=== PATIENT | female | born 1985 | race Caucasian/White ===

== ENCOUNTER 2019-05-08 23:53 | Emergency (ER) | payer OTHER ==
[2019-05-09 00:18] VITALS: BMI 29.1
--- NOTE | 2019-05-09 00:37 | PDOC ---
Documentation entered by Maria Teresa Beckett SCRIBE, acting as scribe for Radha Benjamin MD. Radha Benjamin MD: This documentation has been prepared by the mendezibe, Maria Teresa Beckett SCRIBE, under my direction and personally reviewed by me in its entirety. I confirm that the documentation accurately reflects all work, treatment, procedures, and medical decision making performed by me. Attending Attestation - Resident Resident Name: Nathaly Moreno - ED Attending Attestation I have performed the following: I have examined & evaluated the patient, The case was reviewed & discussed with the resident, I agree w/resident's findings & plan, Exceptions are as noted - HPI HPI: 05/09/19 00:48 The patient is a 34-year-old female with no reported medical history who presents to the emergency department with nausea and vomiting. The patient reports she recently returned from the [facility] about a week ago, presents today with nausea and vomiting. The patient reports associated symptoms of fever, chills, headache, and myalgia. The patient reports taking motrin for the symptoms, last motrin use was about 6 hours ago. - Physicial Exam PE: 05/09/19 01:49 Well-nourished well-developed 34-year-old female walking in the hallway in no acute distress Head normocephalic atraumatic eyes rosemary eomi lungs cta b/l cvs [id number] abd soft skin warm abd dry ext motor strength 5/5 neuro axox3,ambulating, no ataxia,cn2-12 grossly intact - Medical Decision Making 05/09/19 01:52 imp UTI symptoms/fever negative flu swab negative preg test mild uti will d/c home
--- NOTE | 2019-05-09 00:45 | PDOC ---
History of Present Illness - General Chief Complaint: Cold Symptoms Stated Complaint: BODY ACHES/SHIVERING Time Seen by Provider: 05/09/19 00:19 - History of Present Illness Initial Comments: 05/09/19 00:46 Pt is a 34y/o female with no PMH who presents with 1 day body aches, lumbar back pain, chills, and subjective fevers. She recently traveled to the and just over 1 week ago developed nausea and vomited once. She went to urgent care a week ago and was given medication for nausea which helped somewhat. She denies diarrhea, rhinorrhea, cough. She reports some "discomfort" with urination today but thinks it could be due to decreased PO intake. She denies sick contacts. LMP was 2 weeks ago and pt was on OCP until then, so she reports she is unlikely . Past History - Past Medical History Allergies/Adverse Reactions: Allergies Allergy/AdvReac Type Severity Reaction Status Date / Time No Known Allergies Allergy Verified 05/09/19 00:18 Home Medications: Ambulatory Orders Sulfamethoxazole/Trimethoprim [Bactrim Ds -] 1 tab PO BID #10 tablet 05/09/19 Asthma: No - Surgical History Abdominal Surgery: Yes () - Psycho Social/Smoking Cessation Hx Smoking History: Never smoked Have you smoked in the past 12 months: No Information on smoking cessation initiated: No Hx Alcohol Use: No Drug/Substance Use Hx: No Review of Systems - Review of Systems Constitutional: Yes: Chills, Fever HEENTM: No: Ear Pain, Nose Congestion Respiratory: No: Cough, Shortness of Breath ABD/GI: Yes: Nausea. No: Diarrhea, Vomiting : No: Dysuria, Hematuria Musculoskeletal: Yes: Back Pain, Joint Pain, Muscle Pain Neurological: Yes: Headache. No: Dizziness *Physical Exam - Vital Signs Last Vital Signs Temp Pulse Resp BP Pulse Ox 98.1 F 100 H 18 123/82 100 05/09/19 00:00 05/09/19 00:00 05/09/19 00:00 05/09/19 00:00 05/09/19 00:00 - Physical Exam General Appearance: Yes: Nourished, Appropriately Dressed. No: Apparent Distress HEENT: positive: EOMI, MARITZA Neck: positive: Trachea midline Respiratory/Chest: positive: Lungs Clear. negative: Wheezing Cardiovascular: positive: Regular Rhythm, Tachycardia. negative: Murmur Gastrointestinal/Abdominal: positive: Normal Bowel Sounds, Tender (epigastric) Musculoskeletal: negative: CVA Tenderness, Vertebral Tenderness Neurologic: positive: Fully Oriented, Alert, Normal Mood/Affect Medical Decision Making - Medical Decision Making 05/09/19 00:54 Pt is a 34y/o female with no PMH who presents with 1 day body aches, lumbar back pain, chills, and subjective fevers. She recently traveled to the and just over 1 week ago developed nausea and vomited once. ddx: viral vs bacterial gastroenteritis, UTI, , URI, influenza orders: rapid flu, UA, UPT 05/09/19 01:42 rapid flu negative UA bacteria present, will give Bactrim script low-grade fever, will give motrin before d/c Discharge - Discharge Information Problems reviewed: Yes Clinical Impression/Diagnosis: Viral syndrome Urinary tract infection Qualifiers: Urinary tract infection type: acute cystitis Condition: Fair Disposition: HOME - Additional Discharge Information Prescriptions: Sulfamethoxazole/Trimethoprim [Bactrim Ds -] 1 tab PO BID #10 tablet - Follow up/Referral - Patient Discharge Instructions Patient Printed Discharge Instructions: DI for Urinary Tract Infection (UTI) Additional Instructions: You were seen in the emergency room for body aches and chills. You were diagnosed with a mild urinary tract infection and a viral syndrome. Continue to take ibuprofen as directed on the label for fever and body aches. You are being given an antibiotic for the urinary tract infection. Follow up with your primary care doctor or return to the emergency room if your symptoms do not improve or you start to have cough, wheezing, or runny/stuffy nose. - Post Discharge Activity
[2019-05-09 01:42] LABS: EPI CELLS 7.6 /HPF (0-5/HPF); HYALINE CASTS 1 /lpf (0-8); URINE APPEARANCE CLEAR; URINE BILIRUBIN NEGATIVE (NEGATIVE); URINE COLOR YELLOW; URINE GLUCOSE (UA) NEGATIVE (NEGATIVE); URINE KETONE NEGATIVE (NEGATIVE); URINE LEUK ESTERASE TRACE (NEGATIVE); URINE NITRITE NEGATIVE (NEGATIVE); URINE PROTEIN NEGATIVE (NEGATIVE); URINE RBC 5 /hpf (0-4); URINE UROBILINOGEN 0.2 mg/dL (0.2-1.0); URINE WBC 6 /hpf (0-5)
[2019-05-09] MEDS ORDERED: IBUPROFEN 400 MG TABLET (FP) PO ONE ×2 (01:52→02:07)
[2019-05-09 03:19] VITALS: BP 111/72; PULSE 110; TEMP 98.9
== END 2019-05-09 02:15 | disposition home or self-care (01) ==
LOC: JER 23:53
DX: N30.00 Acute cystitis without hematuria (principal); B34.9 Viral infection, unspecified
CPT/HCPCS: 81003; 84703; 87804; 99283-25

== ENCOUNTER 2019-05-13 07:32 | Inpatient (IN) | payer OTHER ==
--- NOTE | 2019-05-13 08:02 | PDOC ---
History of Present Illness - General Chief Complaint: SIRS, Suspected/Possible Stated Complaint: REVISIT Time Seen by Provider: 05/13/19 08:02 History Source: Patient Exam Limitations: No Limitations - History of Present Illness Initial Comments: 05/13/19 08:02 Vida Stein is a 34F presenting with flu-like symptoms. Has had fever/chills, colicky back pain, and suprapubic pain for the last week. Was seen at [facility] ED and diagnosed with UTI, sent home with 5-day course of Macrobid which she completed yesterday. Still had fevers to 101-102F, worsening back pain, chills. Saw her PMD yesterday, who told he to f/u at urgent care. Coming in today for further evaluation and pain control of back pain. Pain is sharp and colicky, at most times 6/10 but 9/10 when strongest. Non-positional, unrelated to meals. One episode of nausea and vomiting this AM. Denies urinary sx or hematuria, denies vaginal bleeding/discharge, has not tolerated PO due to nausea and vomiting, no BM for a few days. No other PMH. No meds. No allergies. Denies alcohol/tobacco/drug use. Recently returned from [facility] [place], drank bottled water, [place] Past History - Past Medical History Allergies/Adverse Reactions: Allergies Allergy/AdvReac Type Severity Reaction Status Date / Time No Known Allergies Allergy Verified 05/13/19 07:46 Home Medications: Ambulatory Orders Sulfamethoxazole/Trimethoprim [Bactrim Ds -] 1 tab PO BID #10 tablet 05/09/19 Asthma: No COPD: No - Surgical History Abdominal Surgery: Yes () - Reproductive History (#): 2 Para: 2 - Psycho Social/Smoking Cessation Hx Smoking History: Never smoked Have you smoked in the past 12 months: No Hx Alcohol Use: No Drug/Substance Use Hx: No Review of Systems - Review of Systems Able to Perform ROS?: Yes Constitutional: Yes: Chills, Fever. No: Weakness HEENTM: No: Eye Pain, Blurred Vision, Hearing Loss, Throat Pain, Difficulty Swallowing Respiratory: No: Cough, Shortness of Breath, Wheezing Cardiac (ROS): No: Chest Pain, Edema, Irregular Heart Rate, Lightheadedness, Palpitations ABD/GI: Yes: Nausea, Poor Appetite, Poor Fluid Intake, Vomiting. No: Constipated, Diarrhea : Yes: Flank Pain. No: Burning, Dysuria, Discharge, Frequency, Urgency Musculoskeletal: Yes: Back Pain Integumentary: No: Symptoms Reported Neurological: No: Headache, Numbness, Weakness, Unsteady Gait Endocrine: No: Symptoms Reported Hematologic/Lymphatic: No: Symptoms Reported All Other Systems: Reviewed and Negative *Physical Exam - Vital Signs Last Vital Signs Temp Pulse Resp BP Pulse Ox 100.2 F H 114 H 18 91/61 98 05/13/19 07:46 05/13/19 07:46 05/13/19 07:46 05/13/19 07:46 05/13/19 07:46 - Physical Exam General Appearance: Yes: Nourished, Appropriately Dressed, Mild Distress HEENT: positive: EOMI, MARITZA, Normal ENT Inspection, Normal Voice, Symmetrical, TMs Normal, Pharynx Normal, Hearing Grossly Normal. negative: Scleral Icterus ( R), Scleral Icterus (L), Pharyngeal Erythema, Tonsillar Exudate, Tonsillar Erythema Neck: positive: Trachea midline, Normal Thyroid, Supple. negative: Tender, Rigid, Lymphadenopathy (R), Lymphadenopathy (L) Respiratory/Chest: positive: Lungs Clear, Normal Breath Sounds. negative: Chest Tender, Respiratory Distress, Accessory Muscle Use, Crackles, Rales, Rhonchi, Stridor, Wheezing Cardiovascular: positive: Regular Rhythm, Regular Rate Gastrointestinal/Abdominal: positive: Normal Bowel Sounds, Tender (suprapubic), Flat, Soft. negative: Guarding, Rebound, Tenderness Musculoskeletal: positive: Normal Inspection, CVA Tenderness (L>R) Extremity: positive: Normal Capillary Refill, Normal Inspection, Normal Range of Motion, Pelvis Stable. negative: Tender Integumentary: positive: Normal Color, Dry, Warm Neurologic: positive: Fully Oriented, Alert, Normal Mood/Affect, Normal Response , Motor Strength 5/5 ED Treatment Course - LABORATORY CBC & Chemistry Diagram: 05/14/19 11:14 05/14/19 11:14 Medical Decision Making - Medical Decision Making 05/13/19 09:11 Patient presents with one week of fever/chills with suprapubic and back pain, now having nausea and vomiting and worsening back pain in the setting of diagnosed UTI. Still having abdominal pain and CVA tenderness. Pain unrelated to meals, no RUQ pain. No history of renal stones. VS notable for hypotension, tachycardia, and fever. Ddx includes UTI/pyelo, infected renal stone, appendicitis. [place], [place] infection unlikely but considered. Sepsis order set obtained for evaluation sepsis likely 2/2 UTI/pyelo. test ordered. IV NS running for hypotension. Will get CTAP with IV contrast to evaluate for abdominal pathology including appy vs. stone. Ordering Ofirmev and 1g ceftriaxone for presumed UTI/pyelo, will cover with Flagyl in the event of intra-abdominal infection. Labs notable for: - CBC WNL - AST/ALT mildly elevated, possible viral illness related - Cr 1.1 - UA consistent with UTI with >300 bacteria, 1+ LE - Lactate 1.4 - Upreg negative 05/13/19 09:46 Sending for CTAP w/ IV contrast now. 05/13/19 11:27 CT: 4.2 cm right ovarian cyst, otherwise normal CT scan of the abdomen and pelvis with no evidence of appendicitis or acute pathology. No evidence of acute pathology on CT, will admit for pyelo with failure of outpatient treatment requiring IV Abx. Microblog sent. ECG shows NSR HR 92, QRS 72, QTc 467 05/13/19 12:35 Discussed case with attending Dr. Staley and koko Redding for admission to his service. Would like 2g ceftriaxone for severe pyelo, will order. Discharge - Discharge Information Problems reviewed: Yes Clinical Impression/Diagnosis: Pyelonephritis Sepsis Qualifiers: Sepsis type: sepsis due to unspecified organism Sepsis acute organ dysfunction status: unspecified Qualified Code(s): A41.9 - Sepsis, unspecified organism - Admission Yes - Follow up/Referral - Patient Discharge Instructions - Post Discharge Activity
--- NOTE | 2019-05-13 08:04 | PDOC ---
Attending Attestation - Resident Resident Name: Berto Acosta - ED Attending Attestation I have performed the following: I have examined & evaluated the patient, The case was reviewed & discussed with the resident, I agree w/resident's findings & plan, Exceptions are as noted - HPI HPI: 05/13/19 08:59 34 years old with now 7-day history of fever T-max 103.1 associated with fever chills nausea vomiting back pain symptoms are moderate persistent constant alleviated by Tylenol but then returned when Tylenol wears off recent travel to - Physicial Exam PE: 05/13/19 08:59 Vitals: Triage Vital signs reviewed [place] General Appearance: No acute distress, well nourished well developed, Head: Atraumatic, Cardiac: Regular rate and rhythym, no murmurs, no rubs, no gallops, Lungs: Clear to auscultation bilateral, good air movement bilaterally, Abdomen: Soft, non distended, normal bowel sounds, non tender to palpation Musculoskeletal: Low back discomfort reproducible Extremities: Full range of motion to all extremities, no cyanosis, clubbing, or edema Skin: Warm and dry, no rashes or lesions, no rash, no petechiae Psych: Normal mood, normal affect - Medical Decision Making 05/13/19 09:01 34 years old with 7-day history of fever low back discomfort right-sided flank tenderness on exam History and examination consistent with clinical pyelonephritis failed outpatient antibiotics CT demonstrates no acute pathology patient still with nausea vomiting will admit for IV antibiotics and further management Heart Score/ECG Review - ECG Impressions Comment:: 05/13/19 14:50 EKG demonstrates sinus rhythm no ST elevations or T wave inversions Interpreted by me.
[2019-05-13] MEDS ORDERED: SODIUM CHLORIDE 1,973 ML IV ONE (08:05)
[2019-05-13] MEDS ORDERED: ACETAMINOPHEN 1000 MG/100 ML VIAL (NON FORMULARY) IVPB ONE ×2 (08:06→13:56)
[2019-05-13] MEDS ORDERED: ACETAMINOPHEN INJECTION 100 ML IVPB ONE ×3 (08:08→14:15)
[2019-05-13] MEDS ORDERED: CEFTRIAXONE 1,000 MG in DEXTROSE 5%-WATER - 50 ML IVPB ONE ×2 (08:26→12:35)
[2019-05-13 08:35] LABS: BASO % 1.1 % (0-2.0); EOS % 0.1 % (0-4.5); HEMATOCRIT 42.4 % (32.4-45.2); HEMOGLOBIN 14.8 GM/dL (10.7-15.3); LYMPH % 10.8 % (8-40); MCH 32.4 pg (25.7-33.7); MCHC 34.8 g/dl (32.0-36.0); MEAN CELL VOLUME 93.1 fl (80-96); MEAN PLT VOLUME 9.5 fl (7.5-11.1); MONO % 6.2 % (3.8-10.2); NEUT % 81.8 % (42.8-82.8); PLATELET COUNT 138 K/MM3 (134-434); RBC 4.56 M/mm3 (3.60-5.2); RDW 12.9 % (11.6-15.6); WHITE BLOOD COUNT 5.6 K/mm3 (4.0-10.0)
[2019-05-13] MEDS ORDERED: CEFTRIAXONE 1 GM/50 ML BAG ONE ×2 (08:39→13:53)
[2019-05-13 08:40] LABS: INR 1.01 (0.83-1.09); PROTHROMBIN TIME (PATIENT) 11.9 SEC (9.7-13.0)
[2019-05-13 08:42] LABS: ACTIVATED PTT 32.6 SECONDS (25.2-36.5)
[2019-05-13 08:54] LABS: EPI CELLS 25.6 /HPF (0-5/HPF); HYALINE CASTS 27 /lpf (0-8); URINE APPEARANCE CLOUDY; URINE BACTERIA 346.9 /hpf (NEGATIVE); URINE BILIRUBIN 1+ (NEGATIVE); URINE COLOR DK YELLOW; URINE GLUCOSE (UA) NEGATIVE (NEGATIVE); URINE KETONE TRACE (NEGATIVE); URINE LEUK ESTERASE 1+ (NEGATIVE); URINE NITRITE NEGATIVE (NEGATIVE); URINE PROTEIN 1+ (NEGATIVE); URINE WBC 18 /hpf (0-5)
[2019-05-13 08:56] LABS: ALBUMIN 3.5 g/dl (3.4-5.0); BILIRUBIN,TOTAL 0.3 mg/dL (0.2-1); BLOOD UREA NITROGEN 6.4 mg/dL (7-18); CALCIUM 8.5 mg/dL (8.5-10.1); CREATININE 1.1 mg/dL (0.55-1.3); POTASSIUM 4.1 mmol/L (3.5-5.1); TOT PROT 7.6 g/dl (6.4-8.2)
[2019-05-13 09:26] LABS: URINE RBC 13.7 /hpf (0-4); YEAST MOD (NEGATIVE)
[2019-05-13] MEDS ORDERED: FLUCONAZOLE 150 MG TABLET PO ONE (13:52)
--- NOTE | 2019-05-13 13:57 | HP ---
CHIEF COMPLAINT: abdominal pain and nausea PCP: None HISTORY OF PRESENT ILLNESS: Pt. is a healthy 34 y.o. F who presents after failed outpatient management of UTI. Pt. was seen in the ED 5 days ago for abdominal pain and was discharged on 5 days of Bactrim. Pt. states that she did complete the antibiotic course. Pt. still had fevers to 101 and 102. Pt. went to urgent care and was referred to the ED. Pt. last had UTI in 2007. Pt. had one episode of nausea and NBNB emesis. Pt. endorses increasing back pain and chills. Pt. denies any vaginal bleeding or discharge. ER course was notable for: (1)BCx./ UCx., Ceftriaxone, Flagyl (2)CT-AP (3) Recent Travel: Recently came back from [place] PAST MEDICAL HISTORY: None PAST SURGICAL HISTORY: Social History: Smoking: Denies Alcohol: Occasional drink Drugs: Denies Lives at home with and 2 kids. Pt. is a sales office manager. Pt. is Allergies No Known Allergies Allergy (Verified 05/13/19 07:46) HOME MEDICATIONS: Home Medications Medication Instructions Recorded Sulfamethoxazole/Trimethoprim 1 tab PO BID #10 tablet 05/09/19 [Bactrim Ds -] REVIEW OF SYSTEMS As above PHYSICAL EXAMINATION Vital Signs - 24 hr 05/13/19 05/13/19 05/13/19 07:46 07:51 11:12 Temperature 100.2 F H Pulse Rate 114 H Pulse Rate [ Right] Respiratory 18 18 Rate Blood Pressure 91/61 Blood Pressure [Right Arm] O2 Sat by Pulse 98 100 100 Oximetry (%) 05/13/19 13:48 Temperature 98.6 F Pulse Rate Pulse Rate [ 102 H Right] Respiratory Rate Blood Pressure Blood Pressure 100/70 [Right Arm] O2 Sat by Pulse 99 Oximetry (%) GENERAL: Awake, alert, and fully oriented, in no acute distress. HEAD: Normal with no signs of trauma. EYES: Sclera anicteric, conjunctiva clear. EARS, NOSE, THROAT: Ears normal, nares patent, oropharynx clear without exudates. Moist mucous membranes. LUNGS: Breath sounds equal, clear to auscultation bilaterally. No wheezes, and no crackles. No accessory muscle use. HEART: Regular rate and rhythm, normal S1 and S2 without murmur ABDOMEN: Soft, mild RUQ and epigastric tenderness, not distended, normoactive bowel sounds, no guarding, no rebound, no masses. MUSCULOSKELETAL: Normal range of motion at all joints. No bony deformities or tenderness. R. CVA tenderness. LOWER EXTREMITIES: 2+ dorsal pedal pulses, warm, well-perfused. No calf tenderness. No peripheral edema. NEUROLOGICAL: Normal speech. PSYCHIATRIC: Cooperative. Good eye contact. Appropriate mood and affect. SKIN: Warm, dry, normal turgor Laboratory Results - last 24 hr 05/13/19 05/13/19 05/13/19 07:15 07:15 07:15 WBC 5.6 RBC 4.56 Hgb 14.8 Hct 42.4 MCV 93.1 MCH 32.4 MCHC 34.8 RDW 12.9 Plt Count 138 MPV 9.5 Absolute Neuts (auto) 4.6 Neutrophils % 81.8 Lymphocytes % 10.8 Monocytes % 6.2 Eosinophils % 0.1 Basophils % 1.1 Nucleated RBC % 0 PT with INR 11.90 INR 1.01 PTT (Actin FS) 32.6 Sodium Potassium Chloride Carbon Dioxide Anion Gap BUN Creatinine Est GFR (CKD-EPI)AfAm Est GFR (CKD-EPI)NonAf Random Glucose Lactic Acid 1.4 Calcium Total Bilirubin AST ALT Alkaline Phosphatase Troponin I Total Protein Albumin Urine Color Urine Appearance Urine pH Ur Specific [place] Urine Protein Urine Glucose (UA) Urine Ketones Urine Blood Urine Nitrite Urine Bilirubin Urine Urobilinogen Ur Leukocyte Esterase Urine WBC (Auto) Urine RBC (Auto) Urine Casts (Auto) U Pathogenic Cast Auto U Epithel Cells (Auto) Urine Bacteria (Auto) Urine Yeast (Auto) Urine HCG, Qual 05/13/19 05/13/19 05/13/19 08:05 08:07 08:36 WBC RBC Hgb Hct MCV MCH MCHC RDW Plt Count MPV Absolute Neuts (auto) Neutrophils % Lymphocytes % Monocytes % Eosinophils % Basophils % Nucleated RBC % PT with INR INR PTT (Actin FS) Sodium 136 Potassium 4.1 Chloride 104 Carbon Dioxide 25 Anion Gap 7 L BUN 6.4 L Creatinine 1.1 Est GFR (CKD-EPI)AfAm 76.39 Est GFR (CKD-EPI)NonAf 65.91 Random Glucose 107 H Lactic Acid Calcium 8.5 Total Bilirubin 0.3 AST 80 H ALT 63 H Alkaline Phosphatase 66 Troponin I < 0.02 Total Protein 7.6 Albumin 3.5 Urine Color Dk yellow Urine Appearance Cloudy Urine pH 7.0 Ur Specific [place] 1.039 H Urine Protein 1+ H Urine Glucose (UA) Negative Urine Ketones Trace H Urine Blood Trace Urine Nitrite Negative Urine Bilirubin 1+ H Urine Urobilinogen 1.0 Ur Leukocyte Esterase 1+ H Urine WBC (Auto) 18 Urine RBC (Auto) 13.7 Urine Casts (Auto) 27 U Pathogenic Cast Auto None seen U Epithel Cells (Auto) 25.6 Urine Bacteria (Auto) 346.9 Urine Yeast (Auto) Mod Urine HCG, Qual 05/13/19 09:30 WBC RBC Hgb Hct MCV MCH MCHC RDW Plt Count MPV Absolute Neuts (auto) Neutrophils % Lymphocytes % Monocytes % Eosinophils % Basophils % Nucleated RBC % PT with INR INR PTT (Actin FS) Sodium Potassium Chloride Carbon Dioxide Anion Gap BUN Creatinine Est GFR (CKD-EPI)AfAm Est GFR (CKD-EPI)NonAf Random Glucose Lactic Acid Calcium Total Bilirubin AST ALT Alkaline Phosphatase Troponin I Total Protein Albumin Urine Color Urine Appearance Urine pH Ur Specific [place] Urine Protein Urine Glucose (UA) Urine Ketones Urine Blood Urine Nitrite Urine Bilirubin Urine Urobilinogen Ur Leukocyte Esterase Urine WBC (Auto) Urine RBC (Auto) Urine Casts (Auto) U Pathogenic Cast Auto U Epithel Cells (Auto) Urine Bacteria (Auto) Urine Yeast (Auto) Urine HCG, Qual Negative ASSESSMENT/PLAN: Pt. is a healthy 34 y.o. F who presents after failed outpatient management of UTI. #Pyelonephitis Pt. failed outpatient Bactrim Will start Ceftriaxone 2gm Daily ID Consult appreciated CT AP appreciated noted 4.2 cm R. ovarian cyst, no mention of ureters--> f/u Renal US #Transaminitis maybe 2/2 to recent Bactrim use f/u Rpt BMP, can get Abd. US if LFTs continue to trend up #FEN NS @ 100 monitor electrolytes and replete as needed Regular Diet #DVT Ppx. Hep SQ Visit type - Emergency Visit Emergency Visit: Yes ED Registration Date: 05/13/19 Care time: The patient presented to the Emergency Department on the above date and was hospitalized for further evaluation of their emergent condition. - New Patient This patient is new to me today: Yes Date on this admission: 05/13/19 - Critical Care Critical Care patient: No ATTENDING PHYSICIAN STATEMENT I saw and evaluated the patient. I reviewed the resident's note and discussed the case with the resident. I agree with the resident's findings and plan as documented. SUBJECTIVE: OBJECTIVE: ASSESSMENT AND PLAN:
[2019-05-13 14:52] VITALS: BMI 24.4
--- NOTE | 2019-05-13 15:30 | PN ---
Teaching Attending Note Name of Resident: Marshall Barrera ATTENDING PHYSICIAN STATEMENT I saw and evaluated the patient. I reviewed the resident's note and discussed the case with the resident. I agree with the resident's findings and plan as documented. 34 healthy female previously on OCP presents with suprapubic pain, fever, chills and LBP. Was recently seen in ED for UTI 4-5 days ago where she was DC with PO Bactrim, no culture done at that time. Returns now w/ worsening urinary symptoms. Also endorses she feels she has a yeast infection. Denies overt pelvic pain, previously stopped OCp due to irregular period follows with [employer] outside. Denies CP/SOb/LOC, had 1 episode of vomiting. Vital Signs - 24 hr 05/13/19 05/13/19 05/13/19 07:46 07:51 11:12 Temperature 100.2 F H Pulse Rate 114 H Pulse Rate [ Right] Respiratory 18 18 Rate Blood Pressure 91/61 Blood Pressure [Right Arm] O2 Sat by Pulse 98 100 100 Oximetry (%) 05/13/19 05/13/19 13:48 14:42 Temperature 98.6 F 99.5 F Pulse Rate 82 Pulse Rate [ 102 H Right] Respiratory 18 Rate Blood Pressure 104/60 Blood Pressure 100/70 [Right Arm] O2 Sat by Pulse 99 99 Oximetry (%) PE GENERAL: NAD LUNGS: CTA b/l, unlabored, no wrr HEART: RRR, s1s2, rrr ABDOMEN: Soft, distended, tenderness to palpation RUQ, no guarding or rebound EXTREMITIES: no edema R CVA tenderness+ Laboratory Results - last 24 hr 05/13/19 05/13/19 05/13/19 07:15 07:15 07:15 WBC 5.6 RBC 4.56 Hgb 14.8 Hct 42.4 MCV 93.1 MCH 32.4 MCHC 34.8 RDW 12.9 Plt Count 138 MPV 9.5 Absolute Neuts (auto) 4.6 Neutrophils % 81.8 Lymphocytes % 10.8 Monocytes % 6.2 Eosinophils % 0.1 Basophils % 1.1 Nucleated RBC % 0 PT with INR 11.90 INR 1.01 PTT (Actin FS) 32.6 Sodium Potassium Chloride Carbon Dioxide Anion Gap BUN Creatinine Est GFR (CKD-EPI)AfAm Est GFR (CKD-EPI)NonAf Random Glucose Lactic Acid 1.4 Calcium Total Bilirubin AST ALT Alkaline Phosphatase Troponin I Total Protein Albumin Urine Color Urine Appearance Urine pH Ur Specific [place] Urine Protein Urine Glucose (UA) Urine Ketones Urine Blood Urine Nitrite Urine Bilirubin Urine Urobilinogen Ur Leukocyte Esterase Urine WBC (Auto) Urine RBC (Auto) Urine Casts (Auto) U Pathogenic Cast Auto U Epithel Cells (Auto) Urine Bacteria (Auto) Urine Yeast (Auto) Urine HCG, Qual 05/13/19 05/13/19 05/13/19 08:05 08:07 08:36 WBC RBC Hgb Hct MCV MCH MCHC RDW Plt Count MPV Absolute Neuts (auto) Neutrophils % Lymphocytes % Monocytes % Eosinophils % Basophils % Nucleated RBC % PT with INR INR PTT (Actin FS) Sodium 136 Potassium 4.1 Chloride 104 Carbon Dioxide 25 Anion Gap 7 L BUN 6.4 L Creatinine 1.1 Est GFR (CKD-EPI)AfAm 76.39 Est GFR (CKD-EPI)NonAf 65.91 Random Glucose 107 H Lactic Acid Calcium 8.5 Total Bilirubin 0.3 AST 80 H ALT 63 H Alkaline Phosphatase 66 Troponin I < 0.02 Total Protein 7.6 Albumin 3.5 Urine Color Dk yellow Urine Appearance Cloudy Urine pH 7.0 Ur Specific [place] 1.039 H Urine Protein 1+ H Urine Glucose (UA) Negative Urine Ketones Trace H Urine Blood Trace Urine Nitrite Negative Urine Bilirubin 1+ H Urine Urobilinogen 1.0 Ur Leukocyte Esterase 1+ H Urine WBC (Auto) 18 Urine RBC (Auto) 13.7 Urine Casts (Auto) 27 U Pathogenic Cast Auto None seen U Epithel Cells (Auto) 25.6 Urine Bacteria (Auto) 346.9 Urine Yeast (Auto) Mod Urine HCG, Qual 05/13/19 09:30 WBC RBC Hgb Hct MCV MCH MCHC RDW Plt Count MPV Absolute Neuts (auto) Neutrophils % Lymphocytes % Monocytes % Eosinophils % Basophils % Nucleated RBC % PT with INR INR PTT (Actin FS) Sodium Potassium Chloride Carbon Dioxide Anion Gap BUN Creatinine Est GFR (CKD-EPI)AfAm Est GFR (CKD-EPI)NonAf Random Glucose Lactic Acid Calcium Total Bilirubin AST ALT Alkaline Phosphatase Troponin I Total Protein Albumin Urine Color Urine Appearance Urine pH Ur Specific [place] Urine Protein Urine Glucose (UA) Urine Ketones Urine Blood Urine Nitrite Urine Bilirubin Urine Urobilinogen Ur Leukocyte Esterase Urine WBC (Auto) Urine RBC (Auto) Urine Casts (Auto) U Pathogenic Cast Auto U Epithel Cells (Auto) Urine Bacteria (Auto) Urine Yeast (Auto) Urine HCG, Qual Negative Home Medications Medication Instructions Recorded Sulfamethoxazole/Trimethoprim 1 tab PO BID #10 tablet 05/09/19 [Bactrim Ds -] Current Medications Generic Name Dose Route Start Last Admin Trade Name Freq PRN Reason Stop Dose Admin Acetaminophen 650 mg 05/13/19 13:53 Tylenol - PO Q6H PRN Fever Or Pain Heparin Sodium (Porcine) 5,000 unit 05/13/19 18:00 Heparin - SQ Q8H-IV OSVALDO Ceftriaxone Sodium 2 gm in 50 mls @ 100 mls/hr 05/14/19 10:00 Ceftriaxone 2 Gm-D5w Bag IVPB DAILY OSVALDO Protocol Sodium Chloride 1,000 mls @ 100 mls/hr 05/13/19 14:00 Normal Saline - IV ASDIR OSVALDO ASSESSMENT AND PLAN: 34 healthy F on OCP presents with suprapubic pain, LBP, failed abx therapy for UTI, admitted for suspected R sided pyelonephritis/complicated UTI, currently HD stable. Complicated UTI w/ R sided pyelonephritis Cont. Ceftriaxone 2g daily (for severe infections) follow urine cx, blood cx, IVF aggressive, PO intake as tolerated, Tylenol PRN for fever/pain No fluid collections or visible abscesses on CT abdomen/pelvis ID consult Vaginal yeast infection give 1 dose Diflucan 150mg R ovarian cyst 4.2cm, patient aware, follows with [employer] outside, no signs of ovarian torsion Mild transaminitis patient endorses having been on OCPs recently stopped, ?2/2 to this no RUQ tenderness or otherwise to suspect gall bladder pathology cont. to trend and monitor, send Hepatitis panel workup, GC Chlamydia, HIV ( patient consented) DVT ppx: AC SC Med-surg
--- NOTE | 2019-05-13 15:32 | EKG ---
Test Reason : Blood Pressure : / mmHG Vent. Rate : 094 BPM Atrial Rate : 094 BPM P-R Int : 166 ms QRS Dur : 074 ms QT Int : 340 ms P-R-T Axes : 062 035 038 degrees QTc Int : 425 ms NORMAL SINUS RHYTHM NONSPECIFIC ST ABNORMALITY NO PREVIOUS ECGS AVAILABLE Confirmed by MARTY ZAMARRIPA MD ([id number]) on 05/13/2019 3:31:51 PM Referred By: Confirmed By:MARTY ZAMARRIPA MD
--- NOTE | 2019-05-13 15:49 | PN ---
Progress Note (short form) - Note Progress Note: ID consult dictated imp/reccd 34 yo female admittted with 5 day history of fevers, and right flank pain she went to see her family in [place] on 04/26 and returned on Saturday 04/29- the day prior to return she noted abdominal discomfort and cramps (mild)- this persisted all week- but she was able to return to work and manage her kids and eat on Thursday she developed fevers and right flank pain, she came to the ED and was given bactrim fro UTI she filled the prsecription but continued to have fever and chills to 102 at home with continued right flank pain +nausea- couldn't eat vomited this am no diarrhea no respiratory symptoms no sick contacts no mosquito bites in [place] drank bottled water last uti was 2007 last antibiotics a few montha ago for a cold (by PCP) pyelonephritis by exam abnl lfts agree with ultrasound check cpk agree with hydration agree with rocephin repeat lfts in am, may need hep serologies if they continue to rise, ?bactrim Problem List - Problems (1) Pyelonephritis Code(s): N12 - TUBULO-INTERSTITIAL NEPHRITIS, NOT SPCF ACUTE OR CHRONIC (2) Transaminitis Code(s): R74.0 - NONSPEC ELEV OF LEVELS OF TRANSAMNS & LACTIC ACID DEHYDRGNSE
[2019-05-13] MEDS: SODIUM CHLORIDE 1,000 ML IV SCH (16:39)
--- NOTE | 2019-05-13 17:42 | CONS ---
DATE OF CONSULTATION: DATE OF DICTATION: 05/13/2019 INFECTIOUS DISEASE CONSULTATION REQUESTING PHYSICIAN: Hospitalist Service. CONSULTING PHYSICIAN: Angelica Meraz MD. HISTORY OF PRESENT ILLNESS: This is a 34-year-old otherwise healthy woman admitted from the community with 5 days of fever and right flank pain. She went to see her family in the [facility] on April 26 and returned on ThursdayApril 29. The day prior to return, she noted some abdominal discomfort and cramp. This persisted all week, but she had no fevers and was otherwise mild, and she was able to return to work, manage her kids, and eat. On Thursday she developed fevers and right flank pain. She came to the ER and was given Bactrim for UTI. She filled the prescription and took the Bactrim but continued to have fever and chills to 102 at home with continued right flank pain. She developed nausea and could not eat. She spoke to her PCP and 2 days ago went to an urgent care center where she received IV hydration. This morning she vomited, and given the persistent symptoms she came to the ER and was admitted. She denies any diarrhea. She has no respiratory complaints at all. She has no sick contacts. She had no mosquito bites when she was in the ER and she drank bottled water. Her last UTI was in 2007. Her last antibiotics were a few months ago for a cold. She received fluids and Rocephin in the emergency room. PAST MEDICAL HISTORY: Notable for . SOCIAL HISTORY: There is no history of cigarette use or drug use. She lives at home with her and 2 kids. 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 No one is sick at home. ALLERGIES: She has no known drug allergies. MEDICATION: Her medications at home, she was taking the Bactrim that we had prescribed and started on May 09. She took it until today, which is the day of admission. REVIEW OF SYSTEMS: As per HPI. PHYSICAL EXAMINATION: Vital Signs: Her T-max was 100.2, current temperature is 99.5, pulse is 82, blood pressure is 104/60, respiratory rate of 18. She weighs 66 kg. She is saturating 99% on room air. HEENT: Normocephalic. Eyes are anicteric. Neck: Supple. Lungs: Clear to auscultation. Heart: Regular rate and rhythm. Abdomen: Soft, nontender. Extremities: Without edema. She has right CVA tenderness on exam. LABORATORY: Notable for white count of 5.6, hemoglobin 14.8, platelets of 138. Her coagulation studies are normal. BUN and creatinine are 6 and 1.1, AST of 80 and ALT of 63. Her urinalysis is notable for trace ketones, 1+ leukocyte esterase with 18 white cells and her beta hCG is negative. Urine and blood cultures have been sent. IMPRESSION: In summary, this is a 34-year-old woman with pyelonephritis by exam , abnormal liver function tests, could be due to her Bactrim. Would agree with ultrasound of the kidneys. Would check CPK given the abnormal liver function tests. Would agree with hydration and Rocephin. Repeat liver function tests in a.m., may need hepatitis serologies if they continue to rise. Further recommendations to follow. Khai [id number] MTDMichael
[2019-05-13] MEDS: HEPARIN NA (PORCINE) 5,000 UNITS/ML 1ML VIAL SQ SCH (18:09)
[2019-05-13] MEDS: ACETAMINOPHEN 325 MG TABLET (FP) PO PRN (22:47)
[2019-05-14] MEDS: HEPARIN NA (PORCINE) 5,000 UNITS/ML 1ML VIAL SQ SCH ×3 (01:57→17:35)
[2019-05-14] MEDS: SODIUM CHLORIDE 1,000 ML IV SCH ×3 (06:14→16:44)
[2019-05-14] MEDS ORDERED: DEXTROSE 5%-WATER 100 ML IVPB ONE (09:09)
[2019-05-14] MEDS ORDERED: CEFTRIAXONE 2 GM in DEXTROSE 5%-WATER 100 ML IVPB SCH (10:00)
--- NOTE | 2019-05-14 10:06 | PN ---
Physical Exam: SUBJECTIVE: Patient seen and examined. She is having right sided back pain and urinary frequency without dysuria. She denies fever, chills, nausea. She says she developed an itchy rash yesterday which she believes to have been caused by CT contrast. OBJECTIVE: Vital Signs Period Temp Pulse Resp BP Sys/Avila Pulse Ox Last 24 Hr 98.4 F-99.6 F 82-102 18-19 90-104/47-70 98-100 GENERAL: The patient is awake, alert, and fully oriented, in no acute distress. LUNGS: Breath sounds equal, clear to auscultation bilaterally, no wheezes, no crackles, no accessory muscle use. HEART: Regular rate and rhythm, S1, S2 without murmur, rub or gallop. ABDOMEN: Soft, nontender, nondistended, normoactive bowel sounds, no guarding, no rebound, no hepatosplenomegaly, no masses. BACK: No CVA tenderness. EXTREMITIES: 2+ pulses, warm, well-perfused, no edema. SKIN: Warm, dry, normal turgor. Fine erythematous rash on abdomen, chest and shoulders. Laboratory Results - last 24 hr 05/13/19 05/13/19 08:07 09:30 Sodium 136 Potassium 4.1 Chloride 104 Carbon Dioxide 25 Anion Gap 7 L BUN 6.4 L Creatinine 1.1 Est GFR (CKD-EPI)AfAm 76.39 Est GFR (CKD-EPI)NonAf 65.91 Random Glucose 107 H Calcium 8.5 Total Bilirubin 0.3 AST 80 H ALT 63 H Alkaline Phosphatase 66 Creatine Kinase 56 Total Protein 7.6 Albumin 3.5 Urine HCG, Qual Negative Active Medications Generic Name Dose Route Start Last Admin Trade Name Freq PRN Reason Stop Dose Admin Acetaminophen 650 mg 05/13/19 13:53 05/13/19 22:47 Tylenol - PO 650 mg Q6H PRN Administration Fever Or Pain Heparin Sodium (Porcine) 5,000 unit 05/13/19 18:00 05/14/19 01:57 Heparin - SQ Not Given Q8H-IV OSVALDO Ceftriaxone Sodium 2 gm/ 100 mls @ 100 mls/hr 05/14/19 10:00 Dextrose IVPB 05/15/19 09:59 DAILY OSVALDO Protocol Sodium Chloride 1,000 mls @ 100 mls/hr 05/13/19 14:00 05/14/19 06:14 Normal Saline - IV 100 mls/hr ASDIR OSVALDO Administration ASSESSMENT/PLAN: This is a 34 year old woman with no significant medical history who presented to the ED with fever, back pain, and chills after being started on Bactrim for UTI. 1. Acute pyelonephritis - Failed outpatient treatment with Bactrim - Blood cultures negative after 24 hours - Urine culture growing gram neg rods - Continue ceftriaxone 2. Skin rash - Patient reports it is less itchy today - ? secondary to Bactrim, ceftriaxone - Benadryl as needed 3. Hepatic transaminitis - Possibly secondary to Bactrim - Recheck LFTs Visit type - Emergency Visit Emergency Visit: Yes ED Registration Date: 05/13/19 Care time: The patient presented to the Emergency Department on the above date and was hospitalized for further evaluation of their emergent condition. - New Patient This patient is new to me today: Yes Date on this admission: 05/14/19 - Critical Care Critical Care patient: No - Discharge Referral Referred to [facility] Med P.C.: No
[2019-05-14 11:52] LABS: BASO % 1.2 % (0-2.0); HEMATOCRIT 40.7 % (32.4-45.2); LYMPH % 35.4 % (8-40); MCH 32.3 pg (25.7-33.7); MCHC 34.4 g/dl (32.0-36.0); MEAN CELL VOLUME 93.7 fl (80-96); MEAN PLT VOLUME 10.2 fl (7.5-11.1); MONO % 15.2 % (3.8-10.2); NEUT % 47.2 % (42.8-82.8); PLATELET COUNT 100 K/MM3 (134-434); RBC 4.34 M/mm3 (3.60-5.2); RDW 13.1 % (11.6-15.6); WHITE BLOOD COUNT 5.5 K/mm3 (4.0-10.0)
[2019-05-14 12:21] LABS: ALBUMIN 2.7 g/dl (3.4-5.0); BILIRUBIN,TOTAL 0.2 mg/dL (0.2-1); CALCIUM 7.9 mg/dL (8.5-10.1); CREATININE 0.8 mg/dL (0.55-1.3); MAGNESIUM 2.1 mg/dL (1.8-2.4); TOT PROT 6.2 g/dl (6.4-8.2)
--- NOTE | 2019-05-14 13:27 | PN ---
Progress Note (short form) - Note Progress Note: feels improved when I saw her yesterday there was a question of whether she had a faint rash- she thought she was a bit itchy after the iv contrast today she has a diffuse macular rash after receiving ceftriaxone this am- itchy - required benadryl no fevers reports improvement in flank pain-no longer radiating throughout her body Vital Signs Period Temp Pulse Resp BP Sys/Avila Pulse Ox Last 24 Hr 98.4 F-99.6 F 82-106 18-19 90-104/47-73 98-99 no conjunctivitis no pharyngitis no arthritis +diffuse macular rash abd/back cor-rrr lungs clear +right cvat abd soft, nt ext no edema +inguinal adenopathy bilateral- ?new, also left retorauricular node CBC, BMP 05/14/19 11:14 05/14/19 11:14 Laboratory Tests 05/13/19 05/14/19 08:07 11:14 AST 80 H 137 H ALT 63 H 113 H Microbiology 05/13/19 08:36 Urine - Urine Clean Catch Urine Culture - Preliminary Lactose Fermenting Neg Bacilli Yeast Like Organism 05/13/19 07:50 Blood - Peripheral Venous Blood Culture - Preliminary NO GROWTH OBTAINED AFTER 24 HOURS, INCUBATION TO CONTINUE FOR 4 DAYS. 05/13/19 07:55 Blood - Peripheral Venous Blood Culture - Preliminary NO GROWTH OBTAINED AFTER 24 HOURS, INCUBATION TO CONTINUE FOR 4 DAYS. a/p pyelonephritis by exam abnl lfts suspected drug rash-?rocephin, prior bactrim thrombocytopenia recent travel to - will get dengue and zika serology as well d/c rocephin f/u lfts and cbc with diff in am f/u cultures consider quinolone for UTI based on sensitivities- should be available in am
[2019-05-14 14:44] LABS: ANISOCYTOSIS 0; MACROCYTOSIS 0; PLATELET ESTIMATE DECREASED
[2019-05-14] MEDS: ACETAMINOPHEN 325 MG TABLET (FP) PO PRN (16:41)
[2019-05-15] MEDS: HEPARIN NA (PORCINE) 5,000 UNITS/ML 1ML VIAL SQ SCH ×3 (02:14→18:53)
[2019-05-15] MEDS: SODIUM CHLORIDE 1,000 ML IV SCH ×2 (02:17→13:44)
[2019-05-15 08:20] LABS: BASO % 0.9 % (0-2.0); EOS % 1.2 % (0-4.5); HEMATOCRIT 38.8 % (32.4-45.2); HEMOGLOBIN 13.2 GM/dL (10.7-15.3); LYMPH % 46.2 % (8-40); MCH 31.7 pg (25.7-33.7); MEAN CELL VOLUME 93.1 fl (80-96); MEAN PLT VOLUME 11.1 fl (7.5-11.1); MONO % 27.4 % (3.8-10.2); NEUT % 24.3 % (42.8-82.8); PLATELET COUNT 95 K/MM3 (134-434); RBC 4.17 M/mm3 (3.60-5.2); RDW 12.9 % (11.6-15.6); WHITE BLOOD COUNT 6.6 K/mm3 (4.0-10.0)
[2019-05-15 08:45] LABS: ALBUMIN 2.7 g/dl (3.4-5.0); BILIRUBIN,TOTAL 0.3 mg/dL (0.2-1); BLOOD UREA NITROGEN 4.6 mg/dL (7-18); CALCIUM 7.8 mg/dL (8.5-10.1); CREATININE 0.7 mg/dL (0.55-1.3); POTASSIUM 3.9 mmol/L (3.5-5.1); TOT PROT 5.8 g/dl (6.4-8.2)
--- NOTE | 2019-05-15 10:17 | PN ---
Physical Exam: SUBJECTIVE: Patient seen and examined. Yesterday, rash increased after second dose of ceftriaxone. She was treated with Benadryl and ceftriaxone was discontinued. This morning, she complains that her hands and feet feel swollen. Rash has improved. OBJECTIVE: Vital Signs Period Temp Pulse Resp BP Sys/Avila Pulse Ox Last 24 Hr 98.1 F-99.2 F 72-106 17-19 92-107/56-73 99 GENERAL: The patient is awake, alert, and fully oriented, in no acute distress. LUNGS: Breath sounds equal, clear to auscultation bilaterally, no wheezes, no crackles, no accessory muscle use. HEART: Regular rate and rhythm, S1, S2 without murmur, rub or gallop. ABDOMEN: Soft, nontender, nondistended, normoactive bowel sounds, no guarding, no rebound, no hepatosplenomegaly, no masses. BACK: No CVA tenderness. EXTREMITIES: 2+ pulses, warm, well-perfused, hands mildly swollen, no LE edema. SKIN: Warm, dry, normal turgor. Decreased erythematous maculopapular rash on abdomen, chest and shoulders. Laboratory Results - last 24 hr 05/14/19 05/14/19 05/15/19 11:14 11:14 07:03 WBC 5.5 6.6 RBC 4.34 4.17 Hgb 14.0 13.2 Hct 40.7 38.8 MCV 93.7 93.1 MCH 32.3 31.7 MCHC 34.4 34.0 RDW 13.1 12.9 Plt Count 100 L D 95 L MPV 10.2 11.1 Absolute Neuts (auto) 2.6 1.6 Neutrophils % 47.2 D 24.3 L D Neutrophils % (Manual) 35.5 L Band Neutrophils % 19.3 Lymphocytes % 35.4 D 46.2 H D Lymphocytes % (Manual) 20.4 Monocytes % 15.2 H D 27.4 H D Monocytes % (Manual) 3 L Eosinophils % 1.0 D 1.2 Eosinophils % (Manual) 1.1 Basophils % 1.2 0.9 Basophils % (Manual) 0.0 Myelocytes % (Man) 1 Promyelocytes % (Man) 0 Blast Cells % (Manual) 0 Nucleated RBC % 0 0 Metamyelocytes 1 Hypochromia 0 Platelet Estimate Decreased Polychromasia 0 Poikilocytosis 0 Anisocytosis 0 Microcytosis 0 Macrocytosis 0 Sodium 139 Potassium 4.0 Chloride 108 H Carbon Dioxide 28 Anion Gap 4 L BUN 5.0 L Creatinine 0.8 Est GFR (CKD-EPI)AfAm 112.27 Est GFR (CKD-EPI)NonAf 96.87 Random Glucose 107 H Calcium 7.9 L Phosphorus 2.0 L Magnesium 2.1 Total Bilirubin 0.2 AST 137 H ALT 113 H Alkaline Phosphatase 54 Total Protein 6.2 L Albumin 2.7 L 05/15/19 07:03 WBC RBC Hgb Hct MCV MCH MCHC RDW Plt Count MPV Absolute Neuts (auto) Neutrophils % Neutrophils % (Manual) Band Neutrophils % Lymphocytes % Lymphocytes % (Manual) Monocytes % Monocytes % (Manual) Eosinophils % Eosinophils % (Manual) Basophils % Basophils % (Manual) Myelocytes % (Man) Promyelocytes % (Man) Blast Cells % (Manual) Nucleated RBC % Metamyelocytes Hypochromia Platelet Estimate Polychromasia Poikilocytosis Anisocytosis Microcytosis Macrocytosis Sodium 140 Potassium 3.9 Chloride 110 H Carbon Dioxide 26 Anion Gap 4 L BUN 4.6 L Creatinine 0.7 Est GFR (CKD-EPI)AfAm 131.94 Est GFR (CKD-EPI)NonAf 113.84 Random Glucose 83 Calcium 7.8 L Phosphorus Magnesium Total Bilirubin 0.3 AST 187 H ALT 167 H Alkaline Phosphatase 52 Total Protein 5.8 L Albumin 2.7 L Active Medications Generic Name Dose Route Start Last Admin Trade Name Freq PRN Reason Stop Dose Admin Acetaminophen 650 mg 05/13/19 13:53 05/14/19 16:41 Tylenol - PO 650 mg Q6H PRN Administration Fever Or Pain Diphenhydramine HCl 25 mg 05/14/19 13:13 Benadryl Injection - IVPB Q6H PRN FOR ITCHING Heparin Sodium (Porcine) 5,000 unit 05/13/19 18:00 05/15/19 02:14 Heparin - SQ 5,000 unit Q8H-IV OSVALDO Administration Sodium Chloride 1,000 mls @ 100 mls/hr 05/13/19 14:00 05/15/19 02:17 Normal Saline - IV 100 mls/hr ASDIR OSVALDO Administration ASSESSMENT/PLAN: This is a 34 year old woman with no significant medical history who presented to the ED with fever, back pain, and chills after being started on Bactrim for UTI. 1. Acute pyelonephritis - Failed outpatient treatment with Bactrim - Blood cultures negative after 48 hours - Urine culture growing gram neg rods - Continue ceftriaxone discontinued after 2 days secondary to rash - Await identification and sensitivities on urine culture 2. Skin rash - Likely secondary to ceftriaxone - Ceftriaxone discontinued and there has been improvement in rash - Continue Benadryl as needed 3. Hepatic transaminitis - Possibly secondary to Bactrim, ceftriaxone - Bactrim and ceftriaxone have been discontinued - Check hepatitis panel - Will continue to follow LFTs Visit type - Emergency Visit Emergency Visit: Yes ED Registration Date: 05/13/19 Care time: The patient presented to the Emergency Department on the above date and was hospitalized for further evaluation of their emergent condition. - New Patient This patient is new to me today: No - Critical Care Critical Care patient: No - Discharge Referral Referred to [facility] Med P.C.: No
[2019-05-15 13:33] LABS: PLATELET ESTIMATE DECREASED
--- NOTE | 2019-05-15 15:00 | PN ---
Progress Note (short form) - Note Progress Note: feels improved still some flank discomfort but improved rash is fading now with swelling of her hands feet Vital Signs Period Temp Pulse Resp BP Sys/Avila Pulse Ox Last 24 Hr 98.1 F-98.1 F 72-80 17-18 92-96/56-56 99 cor-rrr lungs clear abd soft,nt, less cvat ext rash is fading, has swelling of her hands/fingers and feet inguinal adenopathy unchanged from yesterday CBC, BMP 05/15/19 07:03 05/15/19 07:03 Microbiology 05/13/19 08:36 Urine - Urine Clean Catch Urine Culture - Preliminary Lactose Fermenting Neg Bacilli Yeast Like Organism 05/13/19 07:50 Blood - Peripheral Venous Blood Culture - Preliminary NO GROWTH OBTAINED AFTER 48 HOURS, INCUBATION TO CONTINUE FOR 3 DAYS. 05/13/19 07:55 Blood - Peripheral Venous Blood Culture - Preliminary NO GROWTH OBTAINED AFTER 48 HOURS, INCUBATION TO CONTINUE FOR 3 DAYS. ast 187 alt 167 a/p pyelonephritis by exam-less cvat abnl lfts suspected drug rash-?rocephin, prior bactrim thrombocytopenia recent travel to - will get dengue and zika serology as well now with swelling of the hands and feet- ?zika will start po levaquin for partially treated pyelonephritis monogamous, declines HIV testing at this time
[2019-05-16] MEDS: SODIUM CHLORIDE 1,000 ML IV SCH ×4 (00:06→21:58)
[2019-05-16] MEDS: HEPARIN NA (PORCINE) 5,000 UNITS/ML 1ML VIAL SQ SCH ×3 (03:54→18:45)
[2019-05-16 09:27] LABS: BASO % 1.4 % (0-2.0); EOS % 0.8 % (0-4.5); HEMOGLOBIN 13.7 GM/dL (10.7-15.3); MCH 31.6 pg (25.7-33.7); MCHC 34.2 g/dl (32.0-36.0); MEAN CELL VOLUME 92.5 fl (80-96); MEAN PLT VOLUME 10.8 fl (7.5-11.1); MONO % 15.8 % (3.8-10.2); PLATELET COUNT 138 K/MM3 (134-434); RBC 4.32 M/mm3 (3.60-5.2); RDW 13.5 % (11.6-15.6)
[2019-05-16 09:57] LABS: ALBUMIN 3.1 g/dl (3.4-5.0); BILIRUBIN,TOTAL 0.4 mg/dL (0.2-1); BLOOD UREA NITROGEN 6.2 mg/dL (7-18); CALCIUM 8.3 mg/dL (8.5-10.1); CREATININE 0.7 mg/dL (0.55-1.3); TOT PROT 6.5 g/dl (6.4-8.2)
--- NOTE | 2019-05-16 12:02 | PN ---
Physical Exam: SUBJECTIVE: Patient seen and examined. She has no complaints. She says rash has improved. Swelling of her hands has improved as she was able to remove her ring today and couldn't yesterday. OBJECTIVE: Vital Signs Period Temp Pulse Resp BP Sys/Avila Pulse Ox Last 24 Hr 97.9 F-98.4 F 62-68 18-18 104-108/64-68 99 GENERAL: The patient is awake, alert, and fully oriented, in no acute distress. LUNGS: Breath sounds equal, clear to auscultation bilaterally, no wheezes, no crackles, no accessory muscle use. HEART: Regular rate and rhythm, S1, S2 without murmur, rub or gallop. ABDOMEN: Soft, nontender, nondistended, normoactive bowel sounds, no guarding, no rebound, no hepatosplenomegaly, no masses. EXTREMITIES: 2+ pulses, warm, well-perfused, no edema. SKIN: Warm, dry, normal turgor. Faint erythematous maculopapular rash on abdomen , chest and shoulders. Laboratory Results - last 24 hr 05/15/19 05/16/19 05/16/19 07:03 07:50 07:50 WBC 9.0 RBC 4.32 Hgb 13.7 Hct 40.0 MCV 92.5 MCH 31.6 MCHC 34.2 RDW 13.5 Plt Count 138 D MPV 10.8 Absolute Neuts (auto) 1.9 Total Counted 100 Neutrophils % 21.0 L Neutrophils % (Manual) 31.0 L Band Neutrophils % 1.0 Lymphocytes % 61.0 H D Lymphocytes % (Manual) 37.0 D Monocytes % 15.8 H Monocytes % (Manual) 14 H D Eosinophils % 0.8 Eosinophils % (Manual) 2.0 D Basophils % 1.4 Basophils % (Manual) 1.0 D Myelocytes % (Man) 3 H D Promyelocytes % (Man) 1 D Nucleated RBC % 0 Platelet Estimate Decreased Platelet Comment No clumping noted Sodium 139 Potassium 4.0 Chloride 106 Carbon Dioxide 28 Anion Gap 4 L BUN 6.2 L Creatinine 0.7 Est GFR (CKD-EPI)AfAm 131.94 Est GFR (CKD-EPI)NonAf 113.84 Random Glucose 80 Calcium 8.3 L Total Bilirubin 0.4 AST 447 H ALT 375 H Alkaline Phosphatase 62 Total Protein 6.5 Albumin 3.1 L Active Medications Generic Name Dose Route Start Last Admin Trade Name Freq PRN Reason Stop Dose Admin Acetaminophen 650 mg 05/13/19 13:53 05/14/19 16:41 Tylenol - PO 650 mg Q6H PRN Administration Fever Or Pain Diphenhydramine HCl 25 mg 05/14/19 13:13 Benadryl Injection - IVPB Q6H PRN FOR ITCHING Heparin Sodium (Porcine) 5,000 unit 05/13/19 18:00 05/16/19 10:39 Heparin - SQ 5,000 unit Q8H-IV OSVALDO Administration Sodium Chloride 1,000 mls @ 100 mls/hr 05/13/19 14:00 05/16/19 11:37 Normal Saline - IV 100 mls/hr ASDIR OSVALDO Administration ASSESSMENT/PLAN: This is a 34 year old woman with no significant medical history who presented to the ED with fever, back pain, and chills after being started on Bactrim for UTI. 1. Acute pyelonephritis - Failed outpatient treatment with Bactrim - Blood cultures negative after 48 hours - Urine culture growing E. coli resistant to Bactrim - Ceftriaxone discontinued after 2 days secondary to rash and received Levaquin x1 dose yesterday 2. Skin rash - Likely secondary to ceftriaxone - Ceftriaxone discontinued and there has been improvement in rash - Continue Benadryl as needed 3. Hepatic transaminitis - Possibly secondary to Bactrim, ceftriaxone - Bactrim and ceftriaxone have been discontinued - AST and ALT continue to increase - Hepatitis panel pending - Abdominal US 4. Thrombocytopenia - Improved 5. Possible viral syndrome - CMV, Dengue, mono, hepatitis, parvovirus, toxoplasma, Zika, Chikungunya serologies pending Visit type - Emergency Visit Emergency Visit: Yes ED Registration Date: 05/13/19 Care time: The patient presented to the Emergency Department on the above date and was hospitalized for further evaluation of their emergent condition. - New Patient This patient is new to me today: No - Critical Care Critical Care patient: No - Discharge Referral Referred to [facility] No
--- NOTE | 2019-05-16 12:06 | PN ---
Progress Note (short form) - Note Progress Note: feels improved flank pain much improved hand and feet swelling resolving- can take her rings off today now reports Vital Signs Period Temp Pulse Resp BP Sys/Avila Pulse Ox Last 24 Hr 97.9 F-98.4 F 62-68 18-18 104-108/64-68 99 no thrush cor-rrr lungs clear abd soft,mild ruq discomfort to palpation +bilateral femoral adenopathy ext no edema rash still present but fading 05/16/19 07:50 05/16/19 07:50 61 percent lymphocytosis ast 187- now 447 alt 167-now 375 Microbiology 05/13/19 08:36 Urine - Urine Clean Catch Urine Culture - Final Escherichia Coli Yeast Like Organism 05/13/19 07:50 Blood - Peripheral Venous Blood Culture - Preliminary NO GROWTH OBTAINED AFTER 72 HOURS, INCUBATION TO CONTINUE FOR 2 DAYS. 05/13/19 07:55 Blood - Peripheral Venous Blood Culture - Preliminary NO GROWTH OBTAINED AFTER 72 HOURS, INCUBATION TO CONTINUE FOR 2 DAYS. a/p abnl lfts- worsened ?viral syndrome- cbc with lymphocytosis suspected drug rash-?rocephin, prior bactrim thrombocytopenia resolved recent travel to - will get dengue and zika serology as well now with swelling of the hands and feet- ?zika ?pyelonephritis- received 3 days antibioitcs in hospital- will hold further antibiotics for now with rising lfts- not sure this is a drug reaction versus viral infection monogamous, declines HIV testing at this time send toxo, parvovirus, chikugunya repeat sonogram of the abdomen- liver/gb check INR GI evaluation f/u hep serologies d/w dr harper
[2019-05-16 12:39] LABS: PLATELET ESTIMATE DECREASED
--- NOTE | 2019-05-16 14:45 | CON.GI ---
Consult Consult Specialty:: GI Referred by:: Medicine Reason for Consultation:: abnormal LFTs - History of Present Illness Chief Complaint: fevers, R back pain History of Present Illness: 34F with no significant PMHx presenting for evaluation of fevers and R back pain. GI consulted for abnormal LFTs. Sx of R back pain and abdominal pain, nausea, early satiety began Apr 29 while she was visiting Then fevers began. Upon return to [place], went to [facility] ED, was found to have UTI and given TMP-SMX for 5 days. Fevers persisted, so on 05/10, went to [facility] urgent care, told her same dx and continue the course. There, they checked labs - LFTs were already starting to be abnormal - AP 61, TB 0.5, AST 44, ALT 40 Took acetaminophen 1000mg q6h on 05/11-05/12 for persistent fevers On 05/13 represented back to [facility] for persistent fevers Here, noted to have UTI/pyeloneophritis resistant to TMP-SMX Given two doses of CTX, had allergic reaction LFTs continue to rise, so GI consulted Pt denies significant ETOH intake Was taking supplements from a chiropractor, but stopped prior to DR boggs, around 04/23: Cholacol, Zymex, Antonex, Pituitrophin, Int. Cl. 2 Has now been afebrile for >24 hours Pt showed me baseline LFTs from [facility] in 12/2018: TB 0.3 AP 54 AST 11 ALT 15 - History Source History Provided By: Patient Limitations to Obtaining History: No Limitations - Past Medical History ...LMP: 05/03/19 ...: No - Alcohol/Substance Use Hx Alcohol Use: No - Smoking History Smoking history: Never smoked Have you smoked in the past 12 months: No Home Medications - Allergies Allergies/Adverse Reactions: Allergies Allergy/AdvReac Type Severity Reaction Status Date / Time No Known Allergies Allergy Verified 05/13/19 07:46 - Home Medications Home Medications: Ambulatory Orders Sulfamethoxazole/Trimethoprim [Bactrim Ds -] 1 tab PO BID #10 tablet 05/09/19 Family Medical History Family History: Unremarkable Review of Systems - Review of Systems Constitutional: reports: Chills, Fever Eyes: reports: No Symptoms HENT: reports: No Symptoms Neck: reports: No Symptoms Cardiovascular: reports: No Symptoms Respiratory: reports: No Symptoms Gastrointestinal: reports: Nausea. denies: Abdominal Pain Genitourinary: reports: Flank Pain Musculoskeletal: reports: No Symptoms Integumentary: reports: No Symptoms Neurological: reports: No Symptoms Hematology/Lymphatic: reports: No Symptoms Psychiatric: reports: No Symptoms Physical Exam-GI Vital Signs: Vital Signs Temperature 98.2 F 05/16/19 06:41 Pulse Rate 62 05/16/19 06:41 Respiratory Rate 18 05/16/19 09:00 Blood Pressure 104/64 05/16/19 06:41 O2 Sat by Pulse Oximetry (%) 99 05/16/19 09:00 Constitutional: Yes: Well Nourished, No Distress Eyes: Yes: Conjunctiva Clear. No: Sclera Icterus HENT: Yes: Atraumatic, Normocephalic Cardiovascular: Yes: Regular Rate and Rhythm Respiratory: Yes: CTA Bilaterally ...Palpate: No: Tenderness, Epigastium ...Percussion: No: Dullness, Tympanitic ...Rectal Exam: Yes: Deferred Edema: No Neurological: Yes: Alert, Oriented Psychiatric: Yes: Alert, Oriented Labs: CBC, BMP 05/16/19 07:50 05/16/19 07:50 INR, PTT INR 1.01 (0.83-1.09) 05/13/19 07:15 Hepatic Panel Total Bilirubin 0.4 mg/dL (0.2-1) 05/16/19 07:50 AST 447 U/L (15-37) H 05/16/19 07:50 ALT 375 U/L (13-61) H 05/16/19 07:50 Alkaline Phosphatase 62 U/L (45-117) 05/16/19 07:50 Albumin 3.1 g/dl (3.4-5.0) L 05/16/19 07:50 Imaging - Results Cat Scan: Report Reviewed Assessment/Plan Hepatocellular rise in LFTs. DDx - DILI from TMP-SMX vs NSAIDs vs acetaminophen , less likely ceftriaxone; vs viral hepatitis acquired on recent trip to , vs DILI from supplements she was taking up until mid-April. Avoid hepatotoxins In addition to pending EBV, CMV, Dengue, HAV, HBV, HCV, would check the following: acetaminophen level, PALOMO, ASMA, iron studies, alpha 1 AT, ceruloplasmin Daily LFTs and INR Will follow
[2019-05-16] MEDS ORDERED: traMADol HCL 50 MG TABLET PO ONE (18:11)
[2019-05-17] MEDS: HEPARIN NA (PORCINE) 5,000 UNITS/ML 1ML VIAL SQ SCH ×3 (01:08→18:39)
[2019-05-17 07:10] LABS: CMV IgM < 30.0 AU/mL (0.0-29.9)
[2019-05-17 07:42] LABS: BASO % 1.1 % (0-2.0); EOS % 0.9 % (0-4.5); HEMATOCRIT 37.2 % (32.4-45.2); HEMOGLOBIN 12.8 GM/dL (10.7-15.3); LYMPH % 58.9 % (8-40); MCH 31.8 pg (25.7-33.7); MCHC 34.4 g/dl (32.0-36.0); MEAN CELL VOLUME 92.6 fl (80-96); MEAN PLT VOLUME 10.2 fl (7.5-11.1); MONO % 16.2 % (3.8-10.2); NEUT % 22.9 % (42.8-82.8); PLATELET COUNT 179 K/MM3 (134-434); RBC 4.01 M/mm3 (3.60-5.2); RDW 12.9 % (11.6-15.6); WHITE BLOOD COUNT 7.5 K/mm3 (4.0-10.0)
[2019-05-17 07:58] LABS: INR 0.97 (0.83-1.09); PROTHROMBIN TIME (PATIENT) 11.4 SEC (9.7-13.0)
[2019-05-17 08:17] LABS: ALBUMIN 2.9 g/dl (3.4-5.0); BILIRUBIN,DIRECT 0.2 mg/dL (0.0-0.2); BILIRUBIN,TOTAL 0.3 mg/dL (0.2-1); BLOOD UREA NITROGEN 5.9 mg/dL (7-18); CALCIUM 8.3 mg/dL (8.5-10.1); CREATININE 0.6 mg/dL (0.55-1.3); TOT PROT 6.4 g/dl (6.4-8.2)
[2019-05-17] MEDS: SODIUM CHLORIDE 1,000 ML IV SCH ×2 (11:10→18:42)
[2019-05-17] MEDS ORDERED: ONDANSETRON 4 MG/2 ML VIAL IVPUSH PRN (11:37)
--- NOTE | 2019-05-17 11:37 | PN ---
Physical Exam: SUBJECTIVE: Patient seen and examined. She had a headache yesterday evening and today she complains of nausea. OBJECTIVE: Vital Signs Period Temp Pulse Resp BP Sys/Avila Pulse Ox Last 24 Hr 97.4 F-97.9 F 68-80 18-18 94-104/59-65 98-98 GENERAL: The patient is awake, alert, and fully oriented, in no acute distress. LUNGS: Breath sounds equal, clear to auscultation bilaterally, no wheezes, no crackles, no accessory muscle use. HEART: Regular rate and rhythm, S1, S2 without murmur, rub or gallop. ABDOMEN: Soft, nontender, nondistended, normoactive bowel sounds, no guarding, no rebound, no hepatosplenomegaly, no masses. EXTREMITIES: 2+ pulses, warm, well-perfused, no edema. SKIN: Warm, dry, normal turgor, no rash or lesions. NEUROLOGICAL: Alert, oriented, CN intact, no neck stiffness, visual jones intact, strength 5/5 throughout, sensation intact Laboratory Results - last 24 hr 05/15/19 05/15/19 05/15/19 14:55 14:55 14:55 WBC RBC Hgb Hct MCV MCH MCHC RDW Plt Count MPV Absolute Neuts (auto) Neutrophils % Neutrophils % (Manual) Band Neutrophils % Lymphocytes % Lymphocytes % (Manual) Monocytes % Monocytes % (Manual) Eosinophils % Eosinophils % (Manual) Basophils % Basophils % (Manual) Myelocytes % (Man) Promyelocytes % (Man) Blast Cells % (Manual) Nucleated RBC % Metamyelocytes Platelet Estimate PT with INR INR Sodium Potassium Chloride Carbon Dioxide Anion Gap BUN Creatinine Est GFR (CKD-EPI)AfAm Est GFR (CKD-EPI)NonAf Random Glucose Calcium Iron TIBC Iron Saturation Unsaturated IBC Ferritin Total Bilirubin Direct Bilirubin AST ALT Alkaline Phosphatase Total Protein Albumin Acetaminophen CMV IgG Ab > 10.00 H CMV IgM Ab < 30.0 Hep A IgM Ab Confirm Negative Hep Bs Antigen Negative Hep B Core IgM Ab Negative Hepatitis C Ab (EIA) <0.1 Infectious Butts Assay Negative 05/16/19 05/16/19 05/17/19 07:50 15:40 06:50 WBC RBC Hgb Hct MCV MCH MCHC RDW Plt Count MPV Absolute Neuts (auto) Neutrophils % Neutrophils % (Manual) 18.5 L Band Neutrophils % 0.0 Lymphocytes % Lymphocytes % (Manual) 61.2 H D Monocytes % Monocytes % (Manual) 9 Eosinophils % Eosinophils % (Manual) 0.0 D Basophils % Basophils % (Manual) 0.0 Myelocytes % (Man) 2 D Promyelocytes % (Man) 0 D Blast Cells % (Manual) 0 Nucleated RBC % Metamyelocytes 0 D Platelet Estimate Decreased PT with INR 11.40 INR 0.97 Sodium Potassium Chloride Carbon Dioxide Anion Gap BUN Creatinine Est GFR (CKD-EPI)AfAm Est GFR (CKD-EPI)NonAf Random Glucose Calcium Iron TIBC Iron Saturation Unsaturated IBC Ferritin Total Bilirubin Direct Bilirubin AST ALT Alkaline Phosphatase Total Protein Albumin Acetaminophen <2.0 CMV IgG Ab CMV IgM Ab Hep A IgM Ab Confirm Hep Bs Antigen Hep B Core IgM Ab Hepatitis C Ab (EIA) Infectious Butts Assay 05/17/19 05/17/19 05/17/19 06:50 06:50 06:50 WBC 7.5 RBC 4.01 Hgb 12.8 Hct 37.2 MCV 92.6 MCH 31.8 MCHC 34.4 RDW 12.9 Plt Count 179 D MPV 10.2 Absolute Neuts (auto) 1.7 Neutrophils % 22.9 L Neutrophils % (Manual) Band Neutrophils % Lymphocytes % 58.9 H Lymphocytes % (Manual) Monocytes % 16.2 H Monocytes % (Manual) Eosinophils % 0.9 Eosinophils % (Manual) Basophils % 1.1 Basophils % (Manual) Myelocytes % (Man) Promyelocytes % (Man) Blast Cells % (Manual) Nucleated RBC % 0 Metamyelocytes Platelet Estimate PT with INR INR Sodium 140 Potassium 4.0 Chloride 107 Carbon Dioxide 28 Anion Gap 4 L BUN 5.9 L Creatinine 0.6 Est GFR (CKD-EPI)AfAm 138.80 Est GFR (CKD-EPI)NonAf 119.76 Random Glucose 82 Calcium 8.3 L Iron 102 TIBC 343 Iron Saturation 29 Unsaturated IBC 241 Ferritin 1579.0 H Total Bilirubin 0.3 Direct Bilirubin 0.2 AST 425 H ALT 472 H Alkaline Phosphatase 67 Total Protein 6.4 Albumin 2.9 L Acetaminophen CMV IgG Ab CMV IgM Ab Hep A IgM Ab Confirm Hep Bs Antigen Hep B Core IgM Ab Hepatitis C Ab (EIA) Infectious Butts Assay Active Medications Generic Name Dose Route Start Last Admin Trade Name Freq PRN Reason Stop Dose Admin Diphenhydramine HCl 25 mg 05/14/19 13:13 Benadryl Injection - IVPB Q6H PRN FOR ITCHING Heparin Sodium (Porcine) 5,000 unit 05/13/19 18:00 05/17/19 11:13 Heparin - SQ Not Given Q8H-IV OSVALDO Sodium Chloride 1,000 mls @ 100 mls/hr 05/13/19 14:00 05/17/19 11:10 Normal Saline - IV 100 mls/hr ASDIR OSVALDO Administration ASSESSMENT/PLAN: This is a 34 year old woman with no significant medical history who presented to the ED with fever, back pain, and chills after being started on Bactrim for UTI. 1. Acute pyelonephritis - Failed outpatient treatment with Bactrim - Blood cultures negative after 96 hours - Urine culture grew E. coli resistant to Bactrim - Ceftriaxone discontinued after 2 days secondary to rash, then received Levaquin x1 dose yesterday 2. Skin rash - Possibly secondary to ceftriaxone, viral - Ceftriaxone discontinued and there has been improvement in rash - Continue Benadryl as needed 3. Hepatic transaminitis - Possibly secondary to Bactrim, ceftriaxone - Bactrim and ceftriaxone have been discontinued - AST and ALT continue to increase - Acute hepatitis panel negative - Abdominal US unremarkable - Ferritin high with normal iron, TIBC, iron sat - ? secondary to acute illness - PALOMO, ASMA, [id number], ceruloplasmin pending 4. Thrombocytopenia - Improved 5. Possible viral syndrome - Butts, acute hepatitis panel negative - CMV IgG positive/IgM negative - Dengue, parvovirus, toxoplasma, Zika, Chikungunya serologies pending Visit type - Emergency Visit Emergency Visit: Yes ED Registration Date: 05/13/19 Care time: The patient presented to the Emergency Department on the above date and was hospitalized for further evaluation of their emergent condition. - New Patient This patient is new to me today: No - Critical Care Critical Care patient: No - Discharge Referral Referred to [facility] No
[2019-05-17 12:16] LABS: ANISOCYTOSIS 0; MACROCYTOSIS 0; PLATELET ESTIMATE NORMAL
--- NOTE | 2019-05-17 15:38 | PN ---
Progress Note (short form) - Note Progress Note: episode vomiting no abdominal pain rash has resolved no fevers Vital Signs Period Temp Pulse Resp BP Sys/Avila Pulse Ox Last 24 Hr 96.5 F-97.9 F 68-80 18-18 94-104/53-65 98-98 cor-rrr lungs clear abd soft,nt ext no edema no rash CBC, BMP 05/17/19 06:50 05/17/19 06:50 58%lymphocytes ast 187- now 447-475 alt 167-now 375-472 Microbiology 05/13/19 08:36 Urine - Urine Clean Catch Urine Culture - Final Escherichia Coli Yeast Like Organism 05/13/19 07:50 Blood - Peripheral Venous Blood Culture - Preliminary NO GROWTH OBTAINED AFTER 72 HOURS, INCUBATION TO CONTINUE FOR 2 DAYS. 05/13/19 07:55 Blood - Peripheral Venous Blood Culture - Preliminary NO GROWTH OBTAINED AFTER 72 HOURS, INCUBATION TO CONTINUE FOR 2 DAYS. hepatitis serologies are negative a/p abnl lfts- may be peaking, inr is normal ?viral syndrome- cbc with lymphocytosis suspected drug rash-?rocephin, prior bactrim-versus viral process thrombocytopenia resolved recent travel to - will get dengue and zika serology as well swelling has resolved ?pyelonephritis- received 3 days antibioitcs in hospital- will hold further antibiotics for now with rising lfts- not sure this is a drug reaction versus viral infection monogamous, declines HIV testing at this time d/w dr harper
--- NOTE | 2019-05-17 17:15 | PN.GI ---
GI Progress Note Subjective: No acute events No abdominal pain Complains of a headache - Objective Vital Signs: Vital Signs Temperature 96.5 F L 05/17/19 15:16 Pulse Rate 80 05/17/19 15:16 Respiratory Rate 18 05/17/19 15:16 Blood Pressure 96/53 L 05/17/19 15:16 O2 Sat by Pulse Oximetry (%) 98 05/17/19 09:00 Constitutional: Calm Eyes: No: Sclera Icterus Cardiovascular: Yes: Regular Rate and Rhythm. No: Murmur Respiratory: Yes: CTA Bilaterally Gastrointestinal Inspection: No: Distention ...Auscultate: Yes: Normoactive Bowel Sounds ...Palpate: Yes: Soft. No: Hepatomegaly, Splenomegaly, Tenderness ...Percussion: No: Tympanitic Edema: No (No LE edema) Neurological: Yes: Alert Labs: CBC, BMP 05/17/19 06:50 05/17/19 06:50 INR, PTT INR 0.97 (0.83-1.09) 05/17/19 06:50 Hepatic Panel Total Bilirubin 0.3 mg/dL (0.2-1) 05/17/19 06:50 Direct Bilirubin 0.2 mg/dL (0.0-0.2) 05/17/19 06:50 AST 425 U/L (15-37) H 05/17/19 06:50 ALT 472 U/L (13-61) H 05/17/19 06:50 Alkaline Phosphatase 67 U/L (45-117) 05/17/19 06:50 Albumin 2.9 g/dl (3.4-5.0) L 05/17/19 06:50 Laboratory Tests 05/15/19 05/15/19 05/15/19 07:03 14:55 14:55 CMV IgG Ab CMV IgM Ab Dengue Fever IgG Ab Pending Dengue Fever IgM Ab Pending Hep A IgM Ab Confirm Negative Hep Bs Antigen Negative Hep B Core IgM Ab Negative Hepatitis C Ab (EIA) <0.1 Infectious Duval Assay Negative Parvovirus B19 IgG Ab Parvovirus B19 IgM Ab Toxoplasma IgG Ab Toxoplasma IgG Quant Toxoplasma Comment 05/15/19 05/17/19 05/17/19 14:55 06:50 06:50 CMV IgG Ab > 10.00 H CMV IgM Ab < 30.0 Dengue Fever IgG Ab Dengue Fever IgM Ab Hep A IgM Ab Confirm Hep Bs Antigen Hep B Core IgM Ab Hepatitis C Ab (EIA) Infectious Duval Assay Parvovirus B19 IgG Ab Pending Parvovirus B19 IgM Ab Pending Toxoplasma IgG Ab Pending Toxoplasma IgG Quant Pending Toxoplasma Comment Pending Problem List - Problems (1) Transaminitis Assessment/Plan: Clinically asymptomatic with remaining liver chemistries normal, normal INR Question if DILI, viral etiology Autoimmune serologies are pending Avoid hepatotoxic agents Monitor LFTs Ordered EBV PCR Code(s): R74.0 - NONSPEC ELEV OF LEVELS OF TRANSAMNS & LACTIC ACID DEHYDRGNSE
[2019-05-18] MEDS: HEPARIN NA (PORCINE) 5,000 UNITS/ML 1ML VIAL SQ SCH ×3 (02:45→17:40)
[2019-05-18] MEDS: SODIUM CHLORIDE 1,000 ML IV SCH ×2 (04:55→17:40)
[2019-05-18 08:06] LABS: ALPHA-1-ANTITRYPSIN 161 mg/dL (100-188)
[2019-05-18 09:04] LABS: BASO % 0.6 % (0-2.0); EOS % 0.7 % (0-4.5); HEMATOCRIT 37.5 % (32.4-45.2); HEMOGLOBIN 12.7 GM/dL (10.7-15.3); LYMPH % 53.3 % (8-40); MCH 31.5 pg (25.7-33.7); MCHC 33.9 g/dl (32.0-36.0); MEAN CELL VOLUME 92.9 fl (80-96); MEAN PLT VOLUME 9.8 fl (7.5-11.1); MONO % 12.9 % (3.8-10.2); NEUT % 32.5 % (42.8-82.8); PLATELET COUNT 236 K/MM3 (134-434); RBC 4.03 M/mm3 (3.60-5.2); RDW 12.8 % (11.6-15.6); WHITE BLOOD COUNT 6.3 K/mm3 (4.0-10.0)
[2019-05-18 09:37] LABS: ALBUMIN 3.1 g/dl (3.4-5.0); BILIRUBIN,TOTAL 0.4 mg/dL (0.2-1); BLOOD UREA NITROGEN 6.1 mg/dL (7-18); CALCIUM 8.3 mg/dL (8.5-10.1); CREATININE 0.7 mg/dL (0.55-1.3); POTASSIUM 4.3 mmol/L (3.5-5.1); TOT PROT 6.7 g/dl (6.4-8.2)
[2019-05-18 10:14] LABS: ANISOCYTOSIS 0; MACROCYTOSIS 0; PLATELET ESTIMATE NORMAL
[2019-05-18 11:29] LABS: EPI CELLS 7.7 /HPF (0-5/HPF); HYALINE CASTS 0 /lpf (0-8); URINE APPEARANCE CLEAR; URINE BACTERIA 20.3 /hpf (NEGATIVE); URINE BILIRUBIN NEGATIVE (NEGATIVE); URINE COLOR YELLOW; URINE GLUCOSE (UA) NEGATIVE (NEGATIVE); URINE KETONE NEGATIVE (NEGATIVE); URINE LEUK ESTERASE NEGATIVE (NEGATIVE); URINE NITRITE NEGATIVE (NEGATIVE); URINE PROTEIN NEGATIVE (NEGATIVE); URINE RBC 0 /hpf (0-4); URINE WBC 1 /hpf (0-5)
--- NOTE | 2019-05-18 15:52 | PN ---
Progress Note (short form) - Note Progress Note: feels better today Vital Signs Period Temp Pulse Resp BP Sys/Avila Pulse Ox Last 24 Hr 97.4 F-97.9 F 68-76 18-20 96-115/47-66 98-99 cor-rrr lungs clear abd soft,nt no cvat, no ruq pain ext no edema no rash CBC, BMP 05/18/19 07:30 05/18/19 07:30 53%lymphocytes ast 187- now [phone] alt 167-now [phone] monospot negative Current Medications Diphenhydramine HCl (Benadryl Injection -) 25 mg IVPB Q6H PRN PRN Reason: FOR ITCHING Heparin Sodium (Porcine) (Heparin -) 5,000 unit SQ Q8H-IV OSVALDO Last Admin: 05/18/19 10:04 Dose: 5,000 unit Sodium Chloride (Normal Saline -) 1,000 mls @ 100 mls/hr IV ASDIR OSVALDO Last Admin: 05/18/19 04:55 Dose: 100 mls/hr hepatitis serologies are negative toxo negative a/p abnl lfts- may be peaking, inr is normal ?viral syndrome- cbc with lymphocytosis suspected drug rash-?rocephin, prior bactrim-versus viral process-resolved thrombocytopenia resolved recent travel to [place], dengue and zika serology pending swelling has resolved monogamous, declines HIV testing at this time
[2019-05-18 16:08] LABS: PARV B19 IGG 0.3 index (0.0-0.8); PARV B19 IGM 0.4 index (0.0-0.8)
--- NOTE | 2019-05-18 16:42 | PN ---
Physical Exam: SUBJECTIVE: Patient seen and examined. She has no complaints. No further nausea. Headache is improving. She denies abdominal pain, flank pain, dysuria, leg/hand swelling, rash. OBJECTIVE: Vital Signs Period Temp Pulse Resp BP Sys/Avila Pulse Ox Last 24 Hr 97.4 F-97.9 F 68-76 18-20 96-115/47-66 98-99 GENERAL: The patient is awake, alert, and fully oriented, in no acute distress. LUNGS: Breath sounds equal, clear to auscultation bilaterally, no wheezes, no crackles, no accessory muscle use. HEART: Regular rate and rhythm, S1, S2 without murmur, rub or gallop. ABDOMEN: Soft, nontender, nondistended, normoactive bowel sounds, no guarding, no rebound, no hepatosplenomegaly, no masses. EXTREMITIES: 2+ pulses, warm, well-perfused, no edema. SKIN: Warm, dry, normal turgor, no rash or lesions. Laboratory Results - last 24 hr 05/17/19 05/17/19 05/17/19 06:50 06:50 06:50 WBC RBC Hgb Hct MCV MCH MCHC RDW Plt Count MPV Absolute Neuts (auto) Neutrophils % Neutrophils % (Manual) Band Neutrophils % Lymphocytes % Lymphocytes % (Manual) Monocytes % Monocytes % (Manual) Eosinophils % Eosinophils % (Manual) Basophils % Basophils % (Manual) Myelocytes % (Man) Promyelocytes % (Man) Blast Cells % (Manual) Nucleated RBC % Metamyelocytes Hypochromia Platelet Estimate Platelet Comment Polychromasia Poikilocytosis Anisocytosis Microcytosis Macrocytosis Sodium Potassium Chloride Carbon Dioxide Anion Gap BUN Creatinine Est GFR (CKD-EPI)AfAm Est GFR (CKD-EPI)NonAf Random Glucose Calcium Total Bilirubin AST ALT Alkaline Phosphatase Total Protein Albumin Odqzx-[id number]-Ixzffoshsqa 161 Urine Color Urine Appearance Urine pH Ur Specific [place] Urine Protein Urine Glucose (UA) Urine Ketones Urine Blood Urine Nitrite Urine Bilirubin Urine Urobilinogen Ur Leukocyte Esterase Urine WBC (Auto) Urine RBC (Auto) Urine Casts (Auto) U Epithel Cells (Auto) Urine Bacteria (Auto) Parvovirus B19 IgG Ab 0.3 Parvovirus B19 IgM Ab 0.4 Toxoplasma IgG Ab 64.3 H Toxoplasma IgG Quant < 3.0 Toxoplasma Comment 05/18/19 05/18/1905/18/20 07:30 07:30 11:00 WBC 6.3 RBC 4.03 Hgb 12.7 Hct 37.5 MCV 92.9 MCH 31.5 MCHC 33.9 RDW 12.8 Plt Count 236 D MPV 9.8 Absolute Neuts (auto) 2.0 Neutrophils % 32.5 L D Neutrophils % (Manual) 31.6 L Band Neutrophils % 0.0 Lymphocytes % 53.3 H Lymphocytes % (Manual) 30.6 Monocytes % 12.9 H Monocytes % (Manual) 2 L Eosinophils % 0.7 Eosinophils % (Manual) 2.1 D Basophils % 0.6 Basophils % (Manual) 1.0 D Myelocytes % (Man) 0 D Promyelocytes % (Man) 0 Blast Cells % (Manual) 0 Nucleated RBC % 0 Metamyelocytes 3 H D Hypochromia 0 Platelet Estimate Normal Platelet Comment Present Polychromasia 0 Poikilocytosis 0 Anisocytosis 0 Microcytosis 0 Macrocytosis 0 Sodium 140 Potassium 4.3 Chloride 108 H Carbon Dioxide 26 Anion Gap 5 L BUN 6.1 L Creatinine 0.7 Est GFR (CKD-EPI)AfAm 131.94 Est GFR (CKD-EPI)NonAf 113.84 Random Glucose 85 Calcium 8.3 L Total Bilirubin 0.4 AST 311 H ALT 488 H Alkaline Phosphatase 72 Total Protein 6.7 Albumin 3.1 L Ojewv-7-Rzqprlgihil Urine Color Yellow Urine Appearance Clear Urine pH 7.0 Ur Specific [place] 1.005 L Urine Protein Negative Urine Glucose (UA) Negative Urine Ketones Negative Urine Blood Trace Urine Nitrite Negative Urine Bilirubin Negative Urine Urobilinogen 1.0 Ur Leukocyte Esterase Negative Urine WBC (Auto) 1 Urine RBC (Auto) 0 Urine Casts (Auto) 0 U Epithel Cells (Auto) 7.7 Urine Bacteria (Auto) 20.3 Parvovirus B19 IgG Ab Parvovirus B19 IgM Ab Toxoplasma IgG Ab Toxoplasma IgG Quant Toxoplasma Comment Active Medications Generic Name Dose Route Start Last Admin Trade Name Freq PRN Reason Stop Dose Admin Diphenhydramine HCl 25 mg 05/14/19 13:13 Benadryl Injection - IVPB Q6H PRN FOR ITCHING Heparin Sodium (Porcine) 5,000 unit 05/13/19 18:00 05/18/19 10:04 Heparin - SQ 5,000 unit Q8H-IV OSVALDO Administration Sodium Chloride 1,000 mls @ 100 mls/hr 05/13/19 14:00 05/18/19 04:55 Normal Saline - IV 100 mls/hr ASDIR OSVALDO Administration ASSESSMENT/PLAN: This is a 34 year old woman with no significant medical history who presented to the ED with fever, back pain, and chills after being started on Bactrim for UTI. 1. Acute pyelonephritis - Failed outpatient treatment with Bactrim - Blood cultures negative after 5 days - Urine culture grew E. coli resistant to Bactrim - Ceftriaxone discontinued after 2 days secondary to rash, then received Levaquin x1 dose 2. Skin rash - Possibly secondary to ceftriaxone, viral - Ceftriaxone discontinued and there has been improvement in rash - Continue Benadryl as needed 3. Hepatic transaminitis - Possibly secondary to Bactrim, ceftriaxone - Bactrim and ceftriaxone have been discontinued - AST improving, ALT still increasing - Acute hepatitis panel negative - Gbszh-[id number] normal - Abdominal US unremarkable - Ferritin high with normal iron, TIBC, iron sat - ? secondary to acute illness - PALOMO, ASMA, ceruloplasmin pending 4. Thrombocytopenia - Improved 5. Possible viral syndrome - Placer, acute hepatitis panel, parvovirus negative - CMV IgG positive/IgM negative - Toxoplasma IgG positive - Dengue, Zika, Chikungunya serologies pending Visit type - Emergency Visit Emergency Visit: Yes ED Registration Date: 05/13/19 Care time: The patient presented to the Emergency Department on the above date and was hospitalized for further evaluation of their emergent condition. - New Patient This patient is new to me today: No - Critical Care Critical Care patient: No - Discharge Referral Referred to [facility] No
--- NOTE | 2019-05-18 18:16 | PN ---
Progress Note (short form) - Note Progress Note: Doing well from GI standpoint. No abdominal pain, pruritus, or fatigue. VSS with normal abdominal exam and no scleral icterus. Slightly improved AST; ALT not really moving yet Infectious work up negative (viral studies) Await smooth muscle Ab and PALOMO Ultrasound unremarkable Drug induced liver injury versus immune process Await serologies Could consider discharge with close follow up in next day or so Could also consider liver biopsy Above reviewed with patient
[2019-05-19] MEDS: HEPARIN NA (PORCINE) 5,000 UNITS/ML 1ML VIAL SQ SCH ×3 (01:56→17:05)
[2019-05-19 09:19] LABS: BASO % 0.6 % (0-2.0); EOS % 0.7 % (0-4.5); HEMATOCRIT 38.2 % (32.4-45.2); LYMPH % 52.4 % (8-40); MCH 31.6 pg (25.7-33.7); MEAN CELL VOLUME 92.7 fl (80-96); MEAN PLT VOLUME 9.2 fl (7.5-11.1); MONO % 8.5 % (3.8-10.2); NEUT % 37.8 % (42.8-82.8); PLATELET COUNT 310 K/MM3 (134-434); RBC 4.12 M/mm3 (3.60-5.2); RDW 12.9 % (11.6-15.6); WHITE BLOOD COUNT 6.8 K/mm3 (4.0-10.0)
[2019-05-19 10:06] LABS: ALBUMIN 3.3 g/dl (3.4-5.0); BILIRUBIN,TOTAL 0.5 mg/dL (0.2-1); BLOOD UREA NITROGEN 6.7 mg/dL (7-18); CALCIUM 8.6 mg/dL (8.5-10.1); CREATININE 0.7 mg/dL (0.55-1.3); POTASSIUM 4.1 mmol/L (3.5-5.1); TOT PROT 7.1 g/dl (6.4-8.2)
[2019-05-19 13:09] LABS: ANISOCYTOSIS 2+; MACROCYTOSIS 0; PLATELET ESTIMATE NORMAL; TEAR DROP CELLS 1+
--- NOTE | 2019-05-19 15:16 | PN.GI ---
GI Progress Note Subjective: No acute events No abdominal pain LFTs trending down EBV PCR not collected as of yet - Objective Vital Signs: Vital Signs Temperature 98.1 F 05/19/19 10:50 Pulse Rate 77 05/19/19 10:50 Respiratory Rate 20 05/19/19 10:50 Blood Pressure 94/54 L 05/19/19 10:50 O2 Sat by Pulse Oximetry (%) 98 05/19/19 09:00 Constitutional: Calm Eyes: No: Sclera Icterus Cardiovascular: Yes: Regular Rate and Rhythm Respiratory: Yes: CTA Bilaterally Gastrointestinal Inspection: No: Distention ...Auscultate: Yes: Normoactive Bowel Sounds ...Palpate: Yes: Soft. No: Hepatomegaly, Splenomegaly, Tenderness ...Percussion: No: Tympanitic Edema: No (No LE edema) Neurological: Yes: Alert Labs: CBC, BMP 05/19/19 08:22 05/19/19 08:22 INR, PTT INR 0.97 (0.83-1.09) 05/17/19 06:50 Hepatic Panel Total Bilirubin 0.5 mg/dL (0.2-1) 05/19/19 08:22 Direct Bilirubin 0.2 mg/dL (0.0-0.2) 05/17/19 06:50 AST 201 U/L (15-37) H 05/19/19 08:22 ALT 417 U/L (13-61) H 05/19/19 08:22 Alkaline Phosphatase 77 U/L (45-117) 05/19/19 08:22 Albumin 3.3 g/dl (3.4-5.0) L 05/19/19 08:22 Laboratory Tests 05/17/19 06:50 PALOMO Screen Negative Smooth Musc &[employer] Intrp 6 Problem List - Problems (1) Transaminitis Assessment/Plan: Improving. ? infectious etiology. Doubt AIH EBV PCR reordered prior to discharge OK with D/C home Advised avoidance of tylenol / APAP. This should be reenforced Code(s): R74.0 - NONSPEC ELEV OF LEVELS OF TRANSAMNS & LACTIC ACID DEHYDRGNSE
--- NOTE | 2019-05-19 16:48 | PN ---
Progress Note (short form) - Note Progress Note: overall improved still occasional headache, appetite not back to normal Vital Signs Period Temp Pulse Resp BP Sys/Avila Pulse Ox Last 24 Hr 98.1 F-98.1 F 70-77 18-20 90-112/52-60 98-99 cor-rrr lungs clear abd soft,nt ext no edema inguinal adenopathy resolved no rash no cvat CBC, BMP 05/19/19 08:22 05/19/19 08:22 monospot negative lfts improved UA is negative hepatitis serologies are negative toxo negative Microbiology 05/18/19 11:00 Urine - Urine Clean Catch Urine Culture - Preliminary 05/13/19 07:50 Blood - Peripheral Venous Blood Culture - Final NO GROWTH AFTER 5 DAYS INCUBATION 05/13/19 07:55 Blood - Peripheral Venous Blood Culture - Final NO GROWTH AFTER 5 DAYS INCUBATION 05/13/19 08:36 Urine - Urine Clean Catch Urine Culture - Final Escherichia Coli Yeast Like Organism US- negative a/p abnl lfts- have peaked, now downtrending ?viral syndrome- cbc with lymphocytosis suspected drug rash-?rocephin, prior bactrim-versus viral process-resolved thrombocytopenia resolved recent travel to [place], dengue and zika serology pending swelling has resolved monogamous, declines HIV testing at this time clinically improving serologies should be back next week have asked her to avoid dietary supplements to f/u with GI next week for repeat labs she will see her PCP she has my card- can call the office for f/u next week with me [phone] d/w Dr Anne
[2019-05-19] MEDS: SODIUM CHLORIDE 1,000 ML IV SCH (17:04)
--- NOTE | 2019-05-19 17:47 | DS ---
Physical Exam: SUBJECTIVE: Patient seen and examined OBJECTIVE: Vital Signs Period Temp Pulse Resp BP Sys/Avial Pulse Ox Last 24 Hr 98.1 F-98.1 F 70-77 18-20 90-112/52-60 98-99 PHYSICAL EXAM GENERAL: The patient is awake, alert, and fully oriented, in no acute distress. HEAD: Normal with no signs of trauma. EYES: PERRL, extraocular movements intact, sclera anicteric, conjunctiva clear. ENT: Ears normal, nares patent, oropharynx clear without exudates, moist mucous membranes. NECK: Trachea midline, full range of motion, supple. LUNGS: Breath sounds equal, clear to auscultation bilaterally, no wheezes, no crackles, no accessory muscle use. HEART: Regular rate and rhythm, S1, S2 without murmur, rub or gallop. ABDOMEN: Soft, nontender, nondistended, normoactive bowel sounds, no guarding, no rebound, no hepatosplenomegaly, no masses. EXTREMITIES: 2+ pulses, warm, well-perfused, no edema. NEUROLOGICAL: Cranial nerves II through XII grossly intact. Normal speech, gait not observed. PSYCH: Normal mood, normal affect. SKIN: Warm, dry, normal turgor, no rashes or lesions noted. LABS Laboratory Results - last 24 hr 05/17/19 05/19/19 05/19/19 06:50 08:22 08:22 WBC 6.8 RBC 4.12 Hgb 13.0 Hct 38.2 MCV 92.7 MCH 31.6 MCHC 34.0 RDW 12.9 Plt Count 310 D MPV 9.2 Absolute Neuts (auto) 2.6 Neutrophils % 37.8 L Neutrophils % (Manual) 26.0 L Band Neutrophils % 1.0 Lymphocytes % 52.4 H Lymphocytes % (Manual) 38.0 D Monocytes % 8.5 Monocytes % (Manual) 8 D Eosinophils % 0.7 Eosinophils % (Manual) 0.0 D Basophils % 0.6 Basophils % (Manual) 0.0 Myelocytes % (Man) 2 D Promyelocytes % (Man) 0 Blast Cells % (Manual) 0 Nucleated RBC % 0 Metamyelocytes 1 D Hypochromia 0 Platelet Estimate Normal Platelet Comment Present Polychromasia 0 Poikilocytosis 1+ Anisocytosis 2+ Microcytosis 2+ Macrocytosis 0 Spherocytes 1+ Tear Drop Cells 1+ Sodium 140 Potassium 4.1 Chloride 107 Carbon Dioxide 27 Anion Gap 5 L BUN 6.7 L Creatinine 0.7 Est GFR (CKD-EPI)AfAm 131.94 Est GFR (CKD-EPI)NonAf 113.84 Random Glucose 97 Calcium 8.6 Total Bilirubin 0.5 AST 201 H ALT 417 H Alkaline Phosphatase 77 Total Protein 7.1 Albumin 3.3 L PALOMO Screen Negative Smooth Musc &[employer] Intrp 6 HOSPITAL COURSE: Date of Admission:05/13/19 Date of Discharge: 05/19/19 Minutes to complete discharge: 35 Discharge Summary Problems reviewed: Yes Reason For Visit: PYELONEPHRITIS; SEPSIS Current Active Problems Pyelonephritis (Acute) Rash (Acute) Sepsis (Acute) Thrombocytopenia (Acute) Transaminitis (Acute) Urinary tract infection (Acute) Viral syndrome (Acute) Condition: Improved - Instructions Diet, Activity, Other Instructions: You initially came to the ER at [facility] on May 08 with nausea, vomiting, fever, chills, and headache one week after returning from . You were diagnosed with a UTI and prescribed Bactrim. Despite the antibiotic, you continued to have symptoms and returned to the ER on May 13. You were admitted and treated with an IV antibiotic, ceftriaxone. Your liver functions were abnormal, thought to be caused by Bactrim. You were seen by an infectious disease specialist, Dr. Meraz. You developed a rash which was thought to have been caused by the ceftriaxone, so it was stopped, and you were then given a dose of a different antibiotic, Levaquin. Your liver function continued to worsen. Ultrasound of the liver was normal. You were seen by a armored car guard. You were tested for several illnesses, including viral hepatitis, cytomegalovirus, toxoplasma, influenza, parvovirus, and autoimmune liver disease, all of which were negative. You were also tested for Dengue, Chikungunya, and Zika, all of which have not yet been resulted. Your liver functions began to improve and you are being discharged home on May 19. You may resume your usual diet and activity. Please return to the ER if your symptoms of fever, chills, nausea, body aches, rash return. You have an appointment on May 25 with the armored car guard, Dr. Jak Christian. Your liver tests will be checked then. Please call Dr. Meraz's office next week to discuss the results of the pending serology tests. Please schedule an appointment with your primary care physician, Dr. Johnson, next week. Disposition: HOME - Discharge Referral Referred to [facility] No
[2019-05-19 18:45] VITALS: BP 103/59; PULSE 72; TEMP 98
== END 2019-05-19 18:31 | disposition home or self-care (01) | DRG 690 ==
LOC: JER 07:32 → JERBED 12:20 → J6S 14:26
PROVIDERS: ATTEND Internal Medicine
DX: N10 Acute pyelonephritis (principal); R74.0 Nonspecific elevation of levels of transaminase and lactic acid dehydrogenase [LDH]; D69.6 Thrombocytopenia, unspecified; R21 Rash and other nonspecific skin eruption
CPT/HCPCS: 36415; 71046-TC-FY; 74177-TC; 76700-TC; 76775-TC; 80048; 80053; 80074; 80076; 80307; 81003; 82103; 82550; 82728; 83516; 83540; 83550; 83605; 83735; 84100; 84484; 84703; 85025; 85610; 85730; 86038; 86308; 86644; 86645; 86747; 86777; 86778; 86790; 87040; 87077; 87086; 87186; 87799; 93005; 93010; 99285-25; J0131; J1644; J7030; Q9967